=== PATIENT | female | born 1965 | race Caucasian/White ===

== ENCOUNTER 2016-10-31 09:03 | Observation (INO) | payer OTHER ==
[2016-10-10 08:07] VITALS: BMI 39.0
--- NOTE | 2016-10-10 08:36 | PAT Medication Instructions ---
Service Date Oct 10, 2016. Current Home Medication List Hydrochlorothiazide (Hctz), 25 MG PO 2 AM Multivitamin (Multivitamin), 1 TAB PO 2AM Potassium Gluconate (Potassium Gluconate Er), Unknown Dose PO 2AM Medication Instructions For Your Scheduled Surgery - Hold the following medications the morning of surgery: Hydrochlorothiazide (Hctz), 25 MG PO 2 AM Multivitamin (Multivitamin), 1 TAB PO 2AM Potassium Gluconate (Potassium Gluconate Er), Unknown Dose PO 2AM Nothing to eat or drink after midnight If you have any questions please call us at [phone] or [phone] or [phone]
[2016-10-10 09:33] LABS: BASO % 0.9 %; BASO ABS # 0.06 K/uL (0-0.2); COMPLETE YES; EOS % 3.7 %; HEMATOCRIT 42.8 % (37-47); IG% 0.1 %; LYMPH % 28.5 %; LYMPH ABS # 1.98 K/uL (1.2-3.4); MEAN CELL VOLUME 97.1 fL (80-100); MEAN CORPUSCULAR HEMOGLOBIN 33.3 pg (25-34); MEAN CORPUSCULAR HGB CONC 34.3 g/dl (32-36); MEAN PLATELET VOLUME 10.9 fL (7.4-10.4); MONO % 9.1 %; NEUT % 57.7 %; PLATELET COUNT 194 K/uL (130-400); RED BLOOD COUNT 4.41 M/uL (4.2-5.4); WHITE BLOOD COUNT 6.95 K/uL (4.8-10.8)
[2016-10-10 09:44] LABS: URINE APPEARANCE CLEAR (CLEAR); URINE BILIRUBIN NEG (NEG); URINE COLOR YELLOW; URINE EPITHELIAL CELL AUTO >30 /lpf (0-5); URINE NITRITE NEG (NEG); URINE PH 6.5 (4.5-7.5); URINE SPECIFIC GRAVITY 1.005 (1.000-1.030); UROBILINOGEN NEG (NEG)
[2016-10-10 09:52] LABS: MANUAL MICROSCOPIC REQUIRED? NO; REVIEW REQ? NO
[2016-10-10 09:54] LABS: CALCIUM 9.2 mg/dl (8.5-10.1); CREATININE 0.62 mg/dl (0.60-1.20); POTASSIUM 4.2 mmol/L (3.5-5.1)
--- NOTE | 2016-10-30 21:45 | HISTORY & PHYSICAL EXAMINATION ---
DATE OF ADMISSION: 10/31/2016 SUBJECTIVE AND CHIEF COMPLAINT: Left foot and ankle pain. HISTORY OF PRESENT ILLNESS: This is a patient who has had severe pes planus deformity and more recently has developed severe hindfoot pain in the left ankle. The pain at times have been so severe and she had to call off work because of the pain. More recently, she had an MRI of the left ankle which demonstrated severe hindfoot osteoarthritis as well as severe pes planus deformity. She is now being set up for surgical treatment. PAST MEDICAL HISTORY: Hypertension, history of neck pain, obesity. FAMILY HISTORY: Noncontributory. SOCIAL HISTORY: The patient denies tobacco use. She has approximately 4 alcoholic drinks per week. PAST SURGICAL HISTORY: Neck surgery x4, hysterectomy, and vein stripping in both legs. ALLERGIES: CODEINE CAUSES HIVES. CURRENT MEDICATIONS: HCTZ 25 mg 1 p.o. daily, potassium supplement daily, and multivitamin daily. OBJECTIVE PHYSICAL EXAMINATION: GENERAL: The patient is alert and oriented x3. She is in no acute distress. She is a well-dressed, well-nourished 51-year-old female. Her affect is appropriate. CARDIOVASCULAR: Heart has a regular rhythm and rate without murmurs. LUNGS: Clear to auscultation bilateral. Dorsalis pedis, posterior tib pulse +2/4. Cap refill less than 2 seconds. LYMPHATIC: No evidence of any swollen lymph nodes. MUSCULOSKELETAL: The patient has an antalgic gait favoring the left lower extremity. Upon inspection of the left lower extremity, patient has a severe pes planovalgus deformity. There is swelling noted of the ankle and hindfoot. She has decreased range of motion and strength due to the pain and obstruction. With palpation, she has tenderness at the sinus tarsi as well as at the medial and lateral aspects of the hindfoot. SKIN: There are no scars, rashes or ulcers noted. NEUROLOGIC: Sensation normal and intact distally. X-RAY EXAM: MRI of the left ankle demonstrates a pes planus deformity, also noted to have hindfoot osteoarthritis with subchondral cyst noted. There is also marrow edema noted. There appears to be an os trigonum with edema around the os trigonum. There is also an accessory navicular. ASSESSMENT AND DIAGNOSES: 1. Left hindfoot osteoarthritis. 2. Painful pes planovalgus deformity, left lower extremity. 3. Accessory navicular, left lower extremity. 4. Painful os trigonum, left lower extremity. 4. Achilles contracture, left lower extremity. PLAN: Above assessment was discussed with patient. At this time it is recommended patient undergo a left ankle triple arthrodesis, percutaneous tendo Achilles lengthening, resection of os trigonum and resection of accessory navicular. All potential risks, benefits, complications, alternatives and rehab have been discussed with patient. At this time, she wishes to proceed with the surgery as indicated and she will be scheduled for the surgery on 10/31/2016 with aspirin 81 mg p.o. b.i.d., DVT prophylaxis for at least 4 weeks postop. MARY CARMEND
[2016-10-31] VITALS (8 sets, daily range): BP systolic 122–176; BP diastolic 80–105; PULSE 62–92; TEMP 36.4–37.2; O2SAT 97–100; Ht 170.2 cm; Wt 115.5 kg
[~2016-10-31] VITALS: Ht 170.2 cm; Wt 115.5 kg
[~2016-10-31 09:03] MED LIST: CEFAZOLIN 2000 MG/60 ML D5W IV SCH; FENTANYL CITRATE INJ 50 MCG/1 ML 2 ML VIAL ONE; HYDR25TA4 PO; KETAMINE HCL INJ 50 MG/ML 10 ML VIAL ONE; LACTATED RINGER'S 1000ML IV SCH; MIDAZOLAM HCL 1 MG/ML 2ML VIAL ONE; MULT-506 PO; POTA1TAB PO; ROPIVACAINE 0.5% 5 MG/ML 30 ML VIAL ONE; SCOPOLAMINE 1.5 MG TDSY TD SCH
--- NOTE | 2016-10-31 09:42 | History & Physical Bridge Note ---
H&P Re-Evaluation Bridge Note: I have examined the patient, reviewed the History & Physical and in the interval since the performance of the History & Physical I have noted the following changes of clinical significance: No changes noted
[2016-10-31] MEDS ORDERED: BACITRACIN 50000 UNIT VIAL ONE (09:46)
[2016-10-31] MEDS ORDERED: BUPIVACAINE 0.5 % 5 MG/1 ML MPF 30ML VIAL ONE (09:47)
[2016-10-31] MEDS ORDERED: MIDAZOLAM HCL 1 MG/ML 2ML VIAL ONE (10:04)
[2016-10-31] MEDS ORDERED: FENTANYL CITRATE INJ 50 MCG/1 ML 2 ML VIAL ONE ×3 (10:25→13:43)
[2016-10-31] MEDS ORDERED: SUCCINYLCHOLINE 100MG/5ML SYR IV ONE (11:55)
[2016-10-31] MEDS ORDERED: DEXAMETHASONE SOD INJ 4 MG/ML VIAL ONE (11:55)
[2016-10-31] MEDS ORDERED: ROCURONIUM BROMIDE 10 MG/ML 5 ML VIAL ONE (11:55)
[2016-10-31] MEDS ORDERED: EpHEDrine SULFATE 50MG/5ML SYR ONE (11:55)
[2016-10-31] MEDS ORDERED: ONDANSETRON INJ 2 MG/ML 2 ML VIAL ONE ×2 (11:55→13:19)
[2016-10-31] MEDS ORDERED: SODIUM CHLORIDE 0.9% INJ 10 ML VIAL ONE (11:55)
[2016-10-31] MEDS ORDERED: ESMOLOL HCL 10 MG/ML 10 ML VIAL ONE (11:55)
[2016-10-31] MEDS ORDERED: LIDOCAINE HCL 2% 2 ML VIAL (20MG/ML) ONE (11:55)
[2016-10-31] MEDS ORDERED: PROPOFOL IV EMULSION 10 MG/ML 20 ML VIAL IV ONE (11:55)
[2016-10-31] MEDS ORDERED: NEOSTIGMINE METHYLSULFATE 5 MG/5 ML SYR ONE (12:53)
[2016-10-31] MEDS ORDERED: GLYCOPYRROLATE INJ 0.2 MG/ML VIAL ONE (12:53)
--- NOTE | 2016-10-31 12:54 | DIAGNOSTIC IMAGING REPORT ---
LEFT ANKLE 2 VIEWS CLINICAL HISTORY: LT TRIPLE ARTHRODESIS COMPARISON STUDY: None. FINDINGS: Total fluoroscopy time was 19 seconds. 2 fluoroscopic spot images were submitted. There is triple arthrodesis within the hindfoot with multiple screws. The hardware appears intact. The alignment is anatomic. IMPRESSION: Fluoroscopy for triple arthrodesis of the left hindfoot Electronically signed by: Domingo Valentine M.D. 10/31/2016 12:53 PM Dictated Date/Time: 10/31/2016 12:52 PM
--- NOTE | 2016-10-31 13:12 | Discharge Instructions ---
Discharge Instructions Date of Service Oct 31, 2016. Admission Reason for Admission: Left Ankle & Foot Osteoarthritis Discharge Discharge Diagnosis / Problem: left hindfoot osteoarthritis Discharge Goals Goal(s): Decrease discomfort, Improve function Activity Recommendations Activity Limitations: per Instructions/Follow-up section Weightbearing Status: Left non-weightbearing . Instructions / Follow-Up Instructions / Follow-Up ACTIVITY RECOMMENDATIONS: Limitations: No weight bearing to affected limb at all times. SPECIAL CARE INSTRUCTIONS: * Some drainage onto the dressing is normal and is no cause for alarm. * Some swelling is natural especially after walking. * When resting, keep your foot elevated above the level of your heart. * Call [facility] if you notice: -Increased drainage -Fever over 101 degrees F -Severe constant pain BANDAGE: * Leave bandage/cast in place unless otherwise directed. * Keep bandage/cast dry at all times. FOLLOW UP VISIT WITH DR. CANALES If appointment is not already scheduled: Please call [facility] after you get home today to schedule a follow-up appointment for [address] Canales at . Current Hospital Diet Patient's current hospital diet: Regular Diet Discharge Diet Recommended Diet: Regular Diet Procedures Procedures Performed: Left Ankle Triple Arthrodesis; Percutaneous Tendon Achilles Lengthening; Resection Ostrigonum; Resection Accessory Navicular Pending Studies Studies pending at discharge: no Medical Emergencies . Who to Call and When: Medical Emergencies: If at any time you feel your situation is an emergency, please call 911 immediately. . Non-Emergent Contact Non-Emergency issues call your: Surgeon Call Non-Emergent contact if: temperature is above 101, your pain is not controlled, your pain is worsening . "Provider Documentation" section prepared by Jordan Hutchinson. VTE Core Measure Inpt VTE Proph given/why not?: Other Anticoagulation (Aspirin 81 mg every 12 hours for 42 days.), T.E.D. Stockings
[2016-10-31] MEDS ORDERED: ONDANSETRON INJ 2 MG/ML 2 ML VIAL IV PRN ×2 (13:15→14:00)
[2016-10-31] MEDS ORDERED: NO NSAIDS SCH (13:15)
[2016-10-31] MEDS ORDERED: SOD PHOSPHATE/SOD BIPHOSPHATE ENEMA 132 ML BTL PR PRN (13:15)
[2016-10-31] MEDS ORDERED: BISACODYL 10 MG SUPP PR PRN (13:15)
[2016-10-31] MEDS ORDERED: ZOLPIDEM TARTRATE 5 MG TAB PO PRN (13:15)
[2016-10-31] MEDS ORDERED: ALUMINUM/MAGNESIUM/SIMETH (MAALOX MAX) 30 ML UDC PO PRN (13:15)
[2016-10-31] MEDS ORDERED: MAGNESIUM HYDROXIDE SUSP 30 ML UDC PO PRN (13:15)
--- NOTE | 2016-10-31 13:21 | [facility] Post Operative Brief Note ---
Immediate Operative Summary Operative Date Oct 31, 2016. Pre-Operative Diagnosis 1. Left hindfoot osteoarthritis. 2. Posterior Tibial Tendon Dysfunction Grade 3, left lower extremity. 3. Accessory navicular, left lower extremity. 4. Os trigonum Syndrome, left lower extremity. 5. Achilles contracture, left lower extremity. 6. Painful Pes Planus Post-Operative Diagnosis 1. Left hindfoot osteoarthritis. 2. Posterior Tibial Tendon Dysfunction Grade 3, left lower extremity. 3. Accessory navicular, left lower extremity. 4. Os trigonum Syndrome, left lower extremity. 5. Achilles contracture, left lower extremity. 6. Painful Pes Planus Procedure(s) Performed Left Triple Arthrodesis; Percutaneous Tendon Achilles Lengthening; Resection Os trigonum; Resection Accessory Navicular Surgeon Dr. Sarthak Grimes Temporary Staff Accountant Surgeon(s) Jordan Hutchinson PA-C Estimated Blood Loss 20cc Findings See Dict Specimens None per surgeon Drains HV x 1 Anesthesia GLMA w/ popliteal block Complication(s) None Disposition Recovery Room / PACU
[2016-10-31] MEDS ORDERED: HYDROmorphone INJ 1 MG/ML SYR ONE (13:43)
--- NOTE | 2016-10-31 13:49 | OPERATIVE REPORT ---
DATE OF OPERATION: 10/31/2016 PREOPERATIVE DIAGNOSES: 1. Left hindfoot degenerative joint disease. 2. Posterior tibial tendon dysfunction grade 3. 3. Achilles contracture. 4. Accessory navicular. 5. Os trigonum syndrome. 6. Painful pes planovalgus. POSTOPERATIVE DIAGNOSIS: Same. PROCEDURE: 1. Left triple arthrodesis. 2. Percutaneous tendo Achilles lengthening. 3. Resection os trigonum. 4. Resection of accessory navicular. SURGEON: Dr. Grimes. MANAGER LINE: Jordan Hutchinson PA-C who was present for patient positioning, sterile prep and drape, management of retractors and instruments. He was present through the critical portions of the case including wound closure, application of sterile dressing and transport of the patient to recovery. ANESTHESIA: General LMA with popliteal block. SPECIMENS: None. DRAINS: Hemovac x1. COMPLICATIONS: None. BLOOD LOSS: 20 mL. PERTINENT HISTORY: This is a 51-year-old woman who has had chronic progressive and ongoing left foot pain and worsening deformity over the last 2 years. She has had such severe discomfort which limits her ability to ambulate, work and walk. She attempted conservative management including shoe wear modification, activity modification, anti-inflammatories, rest, use of a laced brace and assistive device. She had profound damage to her posterior tibial tendon, hindfoot arthritis and severe limitations of daily living. The patient was scheduled for surgery as indicated. All potential risks, benefits, complications, alternatives, rehab, potential for incomplete relief of symptoms, need for further surgery, DVT, PE, , persistent pain, swelling, scarring, weakness, neurovascular injury, wound complications, hardware failure, nonunion, malunion or persistent limp was discussed with the patient. The patient decided to proceed with procedure as indicated. DESCRIPTION OF PROCEDURE: The patient was taken to the Operating Suite, placed supine on the Operating Room table, after consent and identification of the proper operative site, the patient was anesthetized. LMA was placed. Tourniquet was placed high on the left lower extremity. Left lower extremity was then sterilely prepped and draped in the usual fashion and talonavicular joint was then prepared. Exsanguinated with an Esmarch bandage and tourniquet inflated to 350 mmHg. Next, the foot was held in dorsiflexion and a three-part percutaneous incision was made with an 11-blade scalpel to lengthen the Achilles tendon using standard technique. Next, the stab incisions were then closed using interrupted skin luís. Next, the 15-blade scalpel was used to make an incision from the distal aspect of the fibula to the base of the fourth metatarsal. The incision was deepened through subcutaneous tissue and meticulous hemostasis was obtained with electrocautery. Subcutaneous nerves were identified, retracted and protected. The extensor digitorum brevis was identified and was sharply elevated from the anterior process of the calcaneus revealing the sinus tarsi. Next, the sinus tarsi was debrided carefully with a rongeur and 15-blade scalpel. A cervical lamina spreader box operator was placed in the sinus tarsi opening the subtalar joint. Subtalar joint was then prepared with the use of a curette and rongeur to resect the articular surfaces down to subchondral bleeding bone. Irrigation was performed with sterile normal saline and then 2-mm drill bit was used to further prepare the joint surface with multiple drill holes in both surfaces of the subtalar joint and a small osteotome and mallet were used to fish scale the joint surfaces to increase surface area and bleeding. Next, the calcaneocuboid joint was then entered with the 15-blade scalpel, debrided of soft tissue and then a lamina spreader box operator was placed in the joint opening it for preparation with a curette and rongeur to remove any articular surface down to subchondral bleeding bone. Next, the 2-mm drill bit was used to further prepare the joint with multiple drill holes into the joint and then a small osteotome and mallet were used to fish scale the joint. Next, the 15-blade was used to make an incision from the distal aspect of the tibia to the base of the naviculocuneiform joint. The incision was deepened through subcutaneous tissue. Meticulous hemostasis obtained with electrocautery. A Weitlaner retractor was placed in the wound. The greater saphenous vein was identified, retracted and protected. The capsule of the talonavicular joint was then entered sharply with a 15-blade scalpel and elevated both superior and inferiorly. A small Devorah was placed on the neck of the talus and further soft tissue elevation was performed with the 15-blade scalpel until the talonavicular joint was clearly visualized. The articular surface was then debrided with curette and rongeur and a cervical lamina spreader box operator was placed in the joint. Next, it was irrigated with sterile normal saline and a 2-mm drill bit was used to make multiple holes in the joint surfaces and fish scaling was performed with a small osteotome and mallet. A large, impinging accessory navicular was identified and then sharply resected with a 15 blade scalpel. The subtalar joint was then entered and the large os trigonum was identified using a freer elevator. This was then resected using a pituitary rongeur. After final irrigation was performed with sterile normal saline, the autograft obtained from the accessory navicular and the os trigonum was then morcellized using a rongeur and approximately 15 mL of cancellous graft was impacted into the sinus tarsi. Next, the medial and lateral incisions were irrigated with sterile normal saline and the joint surfaces were then aligned appropriately based on alignment of the lower extremity and the patella. Subtalar joint was aligned and then a 7.3-mm cannulated guidepin was driven from the superior aspect of the talus across the subtalar joint into the calcaneus under fluoroscopic control. Next, an appropriate length 7.3-mm long-thread screw was placed under fluoroscopic control and countersunk slightly. Next, the guidepin was removed. Next, 2.25-mm guidepins x 2 were used to stabilize the talonavicular joint in appropriate alignment and then the calcaneocuboid joint was then stabilized with appropriate alignment under fluoroscopic control. Next, appropriate length of 7.3-mm short-thread cannulated screws were placed across the talonavicular and calcaneocuboid joints respectively under fluoroscopic control. All guidepins were removed. Wounds were irrigated with sterile normal saline and bone graft was then packed in and around the subtalar, talonavicular and calcaneocuboid joints which was comprised of 15 cc of cancellous bone chips. A 10-Swazi single lumen Hemovac drain was then placed in the lateral aspect of the wound exiting dorsolaterally and the extensor digitorum brevis then closed back to its origin with interrupted 2-0 Vicryl sutures. The talonavicular joint capsule was closed using 2-0 Vicryl sutures. The dermis was closed using buried interrupted 3-0 Vicryl sutures medially and laterally and then skin incisions were closed using 4-0 Nylon sutures. A sterile compressive dressing and bulky Albino-Childress plaster splint was applied, overwrapped with an Librado wrap. The tourniquet was released. DISPOSITION: Patient awakened and taken to Recovery in stable condition. I attest to the content of the Intraoperative Record and any orders documented therein. Any exceptions are noted below. MRAY CARMEND
[2016-10-31] MEDS ORDERED: HYDROmorphone INJ 1 MG/ML SYR IV PRN (14:00)
[2016-10-31] MEDS ORDERED: EpHEDrine SULFATE INJ 50 MG/ML AMP IV PRN (14:00)
[2016-10-31] MEDS ORDERED: FENTANYL CITRATE INJ 50 MCG/1 ML 2 ML VIAL IV PRN (14:00)
[2016-10-31] MEDS ORDERED: ATROPINE SULFATE 0.1 MG/ML 5ML SYR IV PRN (14:00)
[2016-10-31] MEDS ORDERED: IV FLUIDS COMPLETED PRN (14:30)
--- NOTE | 2016-10-31 14:43 | Anesthesiology Progress Note ---
Anesthesia Post Op Note Date & Time Oct 31, 2016 at 14:42 Vital Signs Pain Intensity: 4 Vital Signs Past 12 Hours Date Time Temp Pulse Resp B/P Pulse Ox O2 Delivery O2 Flow Rate FiO2 10/31/16 14:25 36.2 77 19 121/78 97 Nasal Cannula 2 10/31/16 14:15 76 19 134/77 99 Nasal Cannula 2 10/31/16 14:05 66 14 136/75 100 Nasal Cannula 2 10/31/16 13:55 65 18 134/81 100 Nasal Cannula 2 10/31/16 13:45 61 26 153/84 100 Mask 10 10/31/16 13:35 66 15 138/81 100 Mask 10 10/31/16 13:28 36.9 69 16 128/80 100 Mask 10 10/31/16 09:30 36.5 66 20 176/99 99 Room Air Notes Mental Status: alert / awake / arousable, participated in evaluation Pt Amnestic to Procedure: Yes Nausea / Vomiting: adequately controlled Pain: adequately controlled Airway Patency, RR, SpO2: stable & adequate BP & HR: stable & adequate Hydration State: stable & adequate Anesthetic Complications: no major complications apparent
[2016-10-31] MEDS: MoRPHine SULFATE 2 MG/ML CARP IV PRN ×3 (15:46→20:06)
[2016-10-31] MEDS: D5W AND 1/2NSS + 20MEQ KCL 1,000 ML IV SCH (15:47)
[2016-10-31] MEDS: CHECK SCOPOLAMINE PATCH PLACEMENT SCH ×2 (15:58→23:39)
[2016-10-31] MEDS: CEFAZOLIN IV 2,000 MG in DEXTROSE 5% 50ML 50 ML IV SCH (17:42)
--- NOTE | 2016-10-31 17:52 | DIAGNOSTIC IMAGING REPORT ---
LEFT FOOT 2 VIEWS CLINICAL HISTORY: POST OP COMPARISON: None. DISCUSSION: Findings consistent with postoperative ankle fusion patient is in casting material. Surgical drains in position. IMPRESSION: Ankle fusion Electronically signed by: Paco Reza M.D. 10/31/2016 5:50 PM Dictated Date/Time: 10/31/2016 5:50 PM
[2016-10-31] MEDS: OXYCODONE HCL IR 5 MG TAB (IMMEDIATE RELEASE) PO PRN ×2 (19:11→23:41)
[2016-10-31] MEDS ORDERED: SENNA 8.6 MG TAB PO SCH (21:00)
[2016-10-31] MEDS ORDERED: NURSING VERBAL MED ORDER ONE (21:15)
[2016-10-31] MEDS: DOCUSATE SODIUM 100 MG CAP PO SCH (21:46)
[2016-10-31] MEDS: ACETAMINOPHEN 500 MG TAB PO SCH (21:47)
[2016-10-31] MEDS: HYDROmorphone INJ 0.5 MG/0.5 ML SYR IV PRN (21:47)
[2016-11-01] MEDS: CEFAZOLIN IV 2,000 MG in DEXTROSE 5% 50ML 50 ML IV SCH (01:41)
[2016-11-01] MEDS: D5W AND 1/2NSS + 20MEQ KCL 1,000 ML IV SCH ×2 (01:41→11:30)
[2016-11-01] MEDS: HYDROmorphone INJ 0.5 MG/0.5 ML SYR IV PRN ×2 (01:42→06:08)
[2016-11-01 03:00] VITALS: BP 118/76; PULSE 76; TEMP 36.9; O2SAT 95
[2016-11-01] MEDS: OXYCODONE HCL IR 5 MG TAB (IMMEDIATE RELEASE) PO PRN ×3 (03:42→12:48)
[2016-11-01 06:03] LABS: HEMATOCRIT 38.4 % (37-47); MEAN CORPUSCULAR HEMOGLOBIN 32.6 pg (25-34); MEAN CORPUSCULAR HGB CONC 33.6 g/dl (32-36); PLATELET COUNT 178 K/uL (130-400); RED BLOOD COUNT 3.96 M/uL (4.2-5.4); WHITE BLOOD COUNT 10.63 K/uL (4.8-10.8)
[2016-11-01] MEDS: ACETAMINOPHEN 500 MG TAB PO SCH (06:08)
[2016-11-01] MEDS ORDERED: NURSING VERBAL MED ORDER ONE ×2 (06:30→06:45)
[2016-11-01] MEDS ORDERED: KETOROLAC TROMETHAMINE 30 MG/ML VIAL ONE (06:36)
[2016-11-01] MEDS ORDERED: OXYCODONE HCL 10 MG TABCR (OXYCONTIN) PO ONE (06:36)
[2016-11-01 06:37] LABS: BUN/CREATININE RATIO 16.3 (10-20); CALCIUM 8.6 mg/dl (8.5-10.1); CREATININE 0.71 mg/dl (0.60-1.20); POTASSIUM 4.2 mmol/L (3.5-5.1)
[2016-11-01] MEDS ORDERED: KETOROLAC TROMETHAMINE 30 MG/ML VIAL IV. SCH (06:45)
[2016-11-01] MEDS ORDERED: OXYCODONE HCL IR 5 MG TAB (IMMEDIATE RELEASE) PO SCH (06:45)
[2016-11-01] MEDS: CHECK SCOPOLAMINE PATCH PLACEMENT SCH (08:00)
[2016-11-01 08:06] VITALS: BP 125/81; PULSE 66; TEMP 36.8; O2SAT 95
[2016-11-01] MEDS ORDERED: HYDROCHLOROTHIAZIDE 25 MG TAB PO SCH (09:00)
[2016-11-01] MEDS ORDERED: ASPIRIN 81 MG ECTAB PO SCH (09:00)
[2016-11-01] MEDS ORDERED: PANTOprazole SOD 40 MG TAB PO SCH (09:00)
[2016-11-01] MEDS ORDERED: MULTIVITAMIN TAB PO SCH (09:00)
[2016-11-01] MEDS: DOCUSATE SODIUM 100 MG CAP PO SCH (09:39)
[2016-11-01] MEDS ORDERED: OXYC-57 PO (11:29)
[2016-11-01] MEDS ORDERED: OXYC15TA89 PO (11:29)
[2016-11-01 11:32] VITALS: BP 120/77; PULSE 58; TEMP 36.8; O2SAT 99
--- NOTE | 2016-11-01 11:37 | Orthopedic Progress Note ---
Orthopedic Progress Note Date of Service Nov 01, 2016. Subjective Reports: feeling well, Denies: SOB, calf pain, chest pain, light headedness, nausea / vomiting Additional Notes: Pain control improved since last night. Objective calves soft nontender, N/V intact, capillary refill less than 2 sec., dressing C /D/I, A&O x3, toes mobile, hemovac drainage (20cc) Drain pulled w/o difficulty.Toes pink and warm. Date Time Temp Pulse Resp B/P Pulse Ox O2 Delivery O2 Flow Rate FiO2 11/01/16 10:37 Room Air 11/01/16 08:06 36.8 66 16 125/81 95 Room Air 11/01/16 03:00 36.9 76 16 118/76 95 Room Air 11/01/16 00:30 Room Air 10/31/16 23:35 36.9 66 18 122/80 97 Room Air 10/31/16 20:40 37.2 92 18 141/88 98 Room Air 10/31/16 17:40 36.9 83 17 160/94 99 Nasal Cannula 2.0 10/31/16 16:38 36.7 66 17 170/105 98 Nasal Cannula 2.0 10/31/16 15:56 36.5 79 17 160/103 100 Nasal Cannula 2.0 10/31/16 15:50 Nasal Cannula 2.0 10/31/16 15:14 36.4 71 17 151/94 100 Nasal Cannula 2.0 10/31/16 14:45 36.5 62 16 139/81 100 Nasal Cannula 2.0 10/31/16 14:45 Nasal Cannula 2.0 10/31/16 14:25 36.2 77 19 121/78 97 Nasal Cannula 2 10/31/16 14:15 76 19 134/77 99 Nasal Cannula 2 10/31/16 14:05 66 14 136/75 100 Nasal Cannula 2 10/31/16 13:55 65 18 134/81 100 Nasal Cannula 2 10/31/16 13:45 61 26 153/84 100 Mask 10 10/31/16 13:35 66 15 138/81 100 Mask 10 10/31/16 13:28 36.9 69 16 128/80 100 Mask 10 Laboratory Results 24 Hours: Test 11/01/16 05:18 Hematocrit 38.4 % Hemoglobin 12.9 g/dL Assessment & Plan Assessment: POD #1 S/P left triple arthrodesis Pain control improved. Plan: Plan for D/C home today NWB L LE PO ASA 81mg PO daily for 4 weeks Ice and elevate L LE F/U 2 weeks for removal sutures. Inhouse Planning DVT Prophylaxis: ASA Discharge Planning Discharge Planning: home Pain Management: Percocet, Oxycontin DVT Prophylaxis: ASA
[2016-11-01] MEDS ORDERED: OXYC-292 PO (11:43)
[2016-11-01 12:23] VITALS: BP 120/77; PULSE 58; TEMP 36.8; O2SAT 99
--- NOTE | 2016-11-09 21:28 | Discharge Summary ---
Orthopedic Discharge Summary Admission Date/Reason Oct 31, 2016 at 09:37 Left Ankle & Foot Osteoarthritis. Discharge Date/Disposition Nov 01, 2016 Home Diagnosis Principal Diagnosis: left hindfoot osteoarthritis Secondary Diagnoses/Problems: left painful pes planovalgus left achilles contracture left painful os trigonum and accessory navicular Procedure(s) Performed 1. Left triple arthrodesis. 2. Percutaneous tendo Achilles lengthening. 3. Resection os trigonum. 4. Resection of accessory navicular Consultations None Medication Reconciliation New Medications: Oxycodone Hcl (Oxycodone Hcl Er) 10 Mg Tab 10 MG PO Q12, #10 TAB Oxycodone/Acetaminophen 5MG/325MG (Percocet 5MG/325MG) Tab 1-2 TABLETS PO Q4H PRN for Pain, #60 TAB PAIN Continued Medications: Hydrochlorothiazide (Hctz) 25 Mg Tab 25 MG PO 2 AM , TAB Multivitamin (Multivitamin) Tab 1 TAB PO 2AM, TAB Potassium Gluconate (Potassium Gluconate Er) Unknown Strength Tab Unknown Dose PO 2AM "SOMETIMES DOSE IS 595, SOMETIMES IS 250" PER PATIENT Admission Physical Exam As per Admitting History & Physical. Hospital Course The patient underwent a left triple arthrodesis on 3. She was kept overnight for pain control. On POD #1, she was doing well with NWB on the LLE and her pain was controlled. She was then d/c'd home. Discharge Instructions Please refer to the electronic Patient Visit Report (Discharge Instructions) for additional information. ACTIVITY RECOMMENDATIONS: Limitations: No weight bearing to affected limb at all times. SPECIAL CARE INSTRUCTIONS: * Some drainage onto the dressing is normal and is no cause for alarm. * Some swelling is natural especially after walking. * When resting, keep your foot elevated above the level of your heart. * Call [facility] if you notice: -Increased drainage -Fever over 101 degrees F -Severe constant pain * Take Aspirin 81 mg every 12 hours for 30 days for DVT prophylaxis. BANDAGE: * Leave bandage/cast in place unless otherwise directed. * Keep bandage/cast dry at all times. FOLLOW UP VISIT WITH DR. CANALES If appointment is not already scheduled: Please call [facility] after you get home today to schedule a follow-up appointment for [address] Canales at .
== END 2016-11-01 13:05 | disposition home or self-care (01) ==
LOC: ENRESERVDT → ENRESERVTM → C.ACU 09:03 → C.3E 09:37
PROVIDERS: ADMIT Orthopaedic Surgery Sports Medicine; ATTEND Orthopaedic Surgery Sports Medicine
DX: M19.072 Primary osteoarthritis, left ankle and foot (principal); M21.42 Flat foot [pes planus] (acquired), left foot; M67.01 Short Achilles tendon (acquired), right ankle; I10 Essential (primary) hypertension; E66.9 Obesity, unspecified; Q74.2 Other congenital malformations of lower limb(s), including pelvic girdle

== ENCOUNTER → 2017-10-30 | Outpatient (CLI) | payer OTHER ==
[~2017-10-30] MED LIST changes: -CEFAZOLIN 2000 MG/60 ML D5W IV SCH; -FENTANYL CITRATE INJ 50 MCG/1 ML 2 ML VIAL ONE; -KETAMINE HCL INJ 50 MG/ML 10 ML VIAL ONE; -LACTATED RINGER'S 1000ML IV SCH; -MIDAZOLAM HCL 1 MG/ML 2ML VIAL ONE; +OXYC-292 PO; -ROPIVACAINE 0.5% 5 MG/ML 30 ML VIAL ONE; -SCOPOLAMINE 1.5 MG TDSY TD SCH
--- NOTE | 2017-10-30 14:20 | DIAGNOSTIC IMAGING REPORT ---
L LOWER EXTREMITY WITHOUT HISTORY: 52 years-old Female EVALUATE HEALING ARTHRODESIS chronic lateral ankle pain with history of prior surgery. Status post triple arthrodesis with fusion of the subtalar joint. COMPARISON: Left foot and ankle radiographs 10/31/2016 TECHNIQUE: Multiple axial CT images of the left lower extremity were obtained without the use of IV contrast. Coronal and sagittal reformatted images were obtained from the axial data set and were submitted for review. Additional 3-D pattern images were generated from a separate workstation. A dose lowering technique was used consistent with the principals of ALARA. FINDINGS: The bones appear mildly demineralized. There are moderate degenerative changes of the tibiotalar joint without definite osteochondral defect of the talar dome identified. Moderate degenerative changes also noted throughout the midfoot articulations, notably within the navicular cuneiform joints. Postoperative changes from prior subtalar arthrodesis redemonstrated. Single cannulated screw is noted traversing the cuboid calcaneal articulation which appears intact without evidence of hardware fracture or loosening. There appears to be at least 80% bony fusion at this articulation. Additional large cannulated screw traverses anterior to posterior fusing the posterior subtalar joint. Note is of hardware fracture or loosening. There appears to be complete bony fusion of the middle and posterior subtalar joints. Lastly, there are 2 cannulated screws fusing the talonavicular joint which appear intact without evidence of hardware fracture or loosening. There also appears to be complete bony fusion of this articulation. The cannulated screw fusing the calcaneal cuboid articulation demonstrates subcortical cysts adjacent to the subarticular cuboid, image 49 of series 301 adjacent to the base of the fifth and fourth metatarsals with subcortical cystic changes, joint space narrowing and subchondral sclerosis also seen involving the base of the fifth metatarsal, image 50 series 301. There is no acute fracture or subluxation identified. Midfoot alignment is anatomic on these nonweightbearing images. There is mild subcutaneous edema about the lower leg and imaged foot which is nonspecific without drainable fluid collection identified. The imaged flexor and extensor tendons appear intact. The Achilles tendon appears unremarkable and intact. No foreign body identified. Moderate sized enthesophytes about the Achilles and plantar calcaneus. IMPRESSION: 1. Postoperative changes from triple arthrodesis of the hindfoot with evidence of complete to near-complete bony fusion involving the subtalar joint, talonavicular and cuboid calcaneal articulations. No evidence of hardware fracture or loosening. 2. Subcortical cystic changes of the cuboid adjacent to the head of the cannulated screw with adjacent subcortical cystic changes and subchondral sclerosis involving the base of the fifth metatarsal. 3. No acute fracture or subluxation. 4. Moderate degenerative changes of the tibiotalar joint. 5. Nonspecific mild subcutaneous edema about the lower leg and imaged foot. The above report was generated using voice recognition software. It may contain grammatical, syntax or spelling errors. Electronically signed by: Iain Mcdowell M.D. 10/30/2017 2:19 PM Dictated Date/Time: 10/30/2017 2:08 PM
== END | disposition home or self-care (01) ==
LOC: C.CTS 13:51
PROVIDERS: ATTEND Physician Assistant
DX: M25.572 Pain in left ankle and joints of left foot (principal); Z98.1 Arthrodesis status

== ENCOUNTER 2021-04-29 06:36 | Observation (INO) ==
[2021-04-29] MEDS ORDERED: ASPIRIN CHEW 324 MG PO STA (07:08)
--- NOTE | 2021-04-29 07:16 | Emergency Department Note ---
History of Present Illness General Chief complaint: Chest Pain Stated complaint: CHEST PAIN,SHORTNESS OF BREATH Time Seen by Provider: 04/29/21 06:56 Source: patient, family ( who is at the bedside), RN notes reviewed and old records reviewed Mode of arrival: ambulatory Limitations: no limitations History of Present Illness Maximum Pain Intensity: 8 This patient is a 55-year-old female who comes in with chest pain. It started suddenly while she was at work folding some laundry about an hour ago. It is in the center of her chest radiates to the right. She describes it more as a burning she said it was a pressure initially. She said that she was short of breath but that is getting better she feels lightheaded and nauseated she said she had some sweating to. No history of any similar complaints. She feels better when she is just sitting here but still says the pain is 8 out of 10. She did take her normal baby aspirin at 1:00 she does work automotive glass mechanic. She has had left lower extremity swelling for years that is unchanged. She did have the Covid vaccine. She has a family history of cardiac disease as well as her father had aortic aneurysm. She said she had imaging of her aorta did not have an aneurysm. She had no recent illness or fever or chills. She does have a history of hypertension for which she takes HCTZ and she did take her medications. She has no numbness or weakness. Home Medications Medication Instructions Recorded Confirmed Type multivitamin 1 tab PO DAILY@0200 #0 tab 07/23/16 04/29/21 History aspirin 81 mg tablet,delayed 81 mg PO DAILY@0200 04/28/19 04/29/21 History release hydrochlorothiazide 25 mg tablet 25 mg PO DAILY@0200 04/28/19 04/29/21 History omega-3 fatty acids 1,000 mg 1,000 mg PO DAILY@0200 04/28/19 04/29/21 History capsule (Fish Oil Concentrate) potassium gluconate 595 mg (99 mg) 99 mg PO DAILY@0200 09/07/19 04/29/21 History tablet omeprazole 20 mg capsule,delayed 20 mg PO DAILY@0200 09/15/19 04/29/21 History release linaclotide 145 mcg capsule 145 mcg PO DAILY@0200 01/29/21 04/29/21 History (Linzess) Allergies Allergy/AdvReac Type Severity Reaction Status Date / Time chlorhexidine Allergy Intermediate SEVERE Verified 04/29/21 08:14 ITCHING codeine Allergy Intermediate Hives Verified 04/29/21 08:14 Past Med/Surg History Medical History Degenerative disc disease CERVICAL History of colitis History of colon polyps Hypertension Morbid obesity with BMI of 40.0-44.9, adult Osteoarthritis Shingles Surgical History H/O cervical spine surgery X 4 SURGERIES (HARDWARE INTACT) GOOD ROM IF SLOWLY TURNED H/O vein stripping RT/LEFT LEGS History of ankle surgery LEFT TOTAL ANKLE ARTHROPLASTY History of colonoscopy with polypectomy History of esophagogastroduodenoscopy (EGD) History of hysterectomy with unilateral oophorectomy History of laparoscopy History of tonsillectomy Hx of tubal ligation Family History Mother Family history of diabetes mellitus Father Family hx colonic polyps AAA (abdominal aortic aneurysm) Heart disease Brother Heart disease Other No family history of adverse response to anesthesia Social History Smoking Status: Current some day smoker Second Hand Exposure: No; Hx Alcohol Use: Yes Alcohol type: beer and wine Hx Substance Use: No Preferred Language: Maltese Communication Ability: Effective Cnc Programmer Required: No Beliefs That Will Affect Care: None Current Living Situation: Spouse and Family Current Living Situation Comment: Lives with and adult son with MS Feels Safe at Home: Yes Assistive Devices: Contacts Review of Systems A total of 10 systems reviewed and were otherwise negative She tells me she did get treated for Lyme disease over the summer. She did complete her course of antibiotics Physical Exam Vital Signs Vital Signs - 24 hr 04/29/21 06:40 04/29/21 06:57 04/29/21 06:59 Temperature 36.7 C Temperature Source Temporal Artery Scan Pulse Rate 90 83 Pulse Rate [Finger] 81 Pulse Rate from SpO2 Sensor 84 Respiratory Rate 20 18 Respiratory Effort / Characteristics Non-Labored Spontaneous Respiratory Depth Normal Respiratory Pattern Regular Blood Pressure 206/142 H 200/131 H Blood Pressure Mean 163 154 Blood Pressure Position Sitting Pulse Oximetry 98 97 98 Oxygen Delivery Method Room Air Room Air Room Air Sepsis Recent Fever Within 48 Hours No Sepsis New/Unexplained Change in Mental Status No Sepsis Action Taken by Nursing No Action Required 04/29/21 07:00 04/29/21 07:15 04/29/21 08:00 Temperature Temperature Source Pulse Rate 85 80 Pulse Rate [Finger] Pulse Rate from SpO2 Sensor 83 80 Respiratory Rate 16 16 Respiratory Effort / Characteristics Respiratory Depth Respiratory Pattern Blood Pressure 190/130 H 154/115 H Blood Pressure Mean 150 128 Blood Pressure Position Pulse Oximetry 97 95 97 Oxygen Delivery Method Room Air Room Air Room Air Sepsis Recent Fever Within 48 Hours Sepsis New/Unexplained Change in Mental Status Sepsis Action Taken by Nursing General: Well developed well nourished mildly anxious middle-aged female who otherwise in no acute respiratory distress, breathing comfortably on room air. Normal speech HEENT: Normal cephalic atraumatic. Pupils are equal round and reactive to light. Extraocular movements are intact. Oropharynx is pink with moist mucous membranes. No swelling of the mouth lips or tongue. Neck: Supple with a midline trachea. No meningeal signs or stiffness, no JVD or bruits. No Stridor. Chest: Clear to auscultation bilaterally. No wheezes or rhonchi. No increased work of breathing. Is mildly tender palpation in the central chest Heart: Regular rate and rhythm without murmurs or gallops. Abdomen: Soft nontender, nondistended without rebound guarding or rigidity. Extremities: No cyanosis clubbing. She has edema of her left leg which is chronic and unchanged she tells me. Spine/Back. Non tender to palpation. No CVA tenderness Skin: Good turgor without rashes. Neurologic exam: Cranial nerves two through 12 are intact. Motor and sensation are intact and symmetrical throughout. Course Administered Medications Acetaminophen (Acetaminophen 325 Mg Tab) 650 mg PO Q4H PRN PRN Reason: Pain or Fever Stop: 05/29/21 11:26 Last Admin: 04/29/21 13:08 Dose: 650 mg Documented by: [id number] Discontinued Medications Amlodipine Besylate (Amlodipine Besylate 5 Mg Tab) Confirm Administered Dose 5 mg .ROUTE .STK-MED ONE Stop: 04/29/21 09:41 Last Admin: 04/29/21 09:42 Dose: 5 mg Documented by: [id number] Aspirin (Aspirin Chew 324 Mg) 324 mg PO NOW STA Stop: 04/29/21 07:09 Last Admin: 09/13/21 07:23 Dose: 324 mg Documented by: [id number] Ioversol (Optiray 320 125ml) 120 ml IV ONCE ONE Stop: 04/29/21 08:30 Last Admin: 04/29/21 08:29 Dose: 120 ml Documented by: [id number] Morphine Sulfate (Morphine Sulfate 2 Mg/Ml Carp) 2 mg IV NOW STA Stop: 04/29/21 08:56 Last Admin: 04/29/21 09:42 Dose: 2 mg Documented by: [id number] Nitroglycerin (Nitroglycerin Sl 0.4 Mg/Tab Tab) 0.4 mg SL UD PRN PRN Reason: Chest Pain Stop: 05/29/21 07:07 Last Admin: 04/29/21 08:05 Dose: 0.4 mg Documented by: [id number] Admin: 04/29/21 07:36 Dose: 0.4 mg Documented by: [id number] Admin: 04/29/21 07:23 Dose: 0.4 mg Documented by: [id number] Nitroglycerin (Nitroglycerin 2% Ointment 30gm Tube) 1 inch EXT NOW ONE Stop: 04/29/21 08:18 Last Admin: 04/29/21 08:57 Dose: 1 inch Documented by: [id number] Ondansetron HCl (Ondansetron Inj 2 Mg/Ml 2 Ml Vial) Confirm Administered Dose 4 mg .ROUTE .STK-MED ONE Stop: 04/29/21 08:00 Last Admin: 04/29/21 08:06 Dose: 4 mg Documented by: [id number] Ondansetron HCl (Ondansetron Inj 2 Mg/Ml 2 Ml Vial) 4 mg IV NOW STA Stop: 04/29/21 08:00 Last Admin: 04/29/21 08:06 Dose: Not Given Documented by: [id number] Ondansetron HCl (Ondansetron Inj 2 Mg/Ml 2 Ml Vial) 4 mg IV NOW STA Stop: 04/29/21 08:56 Last Admin: 04/29/21 09:55 Dose: 4 mg Documented by: [id number] Potassium Chloride (Potassium Chloride 10 Meq Tabcr) Confirm Administered Dose 40 meq PO .STK-MED ONE Stop: 04/29/21 09:41 Last Admin: 04/29/21 09:42 Dose: 40 meq Documented by: [id number] Medical Decision Making Differential Diagnosis Acute coronary syndrome, arrhythmia, or aortic aneurysm/dissection, pneumonia, pneumothorax, CHF, GERD, musculoskeletal, anxiety, Covid Medical Records Attestation: I reviewed the patient's medical records. Home Medications Current Medication List: was personally reviewed by me Laboratory Data Attestation: I reviewed the patient's lab results. Result diagrams: 04/29/21 06:55 04/29/21 06:55 Lab Results 04/29/21 04/29/21 04/29/21 Range/Units 06:55 06:55 06:55 WBC 7.18 (4.8-10.8) K/uL RBC 4.28 (4.2-5.4) M/uL Hgb 14.3 (12.0-16.0) g/dL Hct 41.6 (37-47) % MCV 97.2 (80-100) fL MCH 33.4 (25-34) pg MCHC 34.4 (32-36) g/dL RDW Std Deviation 47.0 H (36.4-46.3) fL RDW Coeff of Wilder 13.2 (11.5-14.5) % Plt Count 212 (130-400) K/uL MPV 10.9 H (7.4-10.4) fL Immature Gran % (Auto) 0.3 % Neut % (Auto) 53.7 % Lymph % (Auto) 34.5 % Arthur % (Auto) 7.8 % Eos % (Auto) 2.9 % Baso % (Auto) 0.8 % Neut # (Auto) 3.85 (1.4-6.5) K/uL Lymph # (Auto) 2.48 (1.2-3.4) K/uL Arthur # (Auto) 0.56 (0.11-0.59) K/uL Eos # (Auto) 0.21 (0-0.5) K/uL Baso # (Auto) 0.06 (0-0.2) K/uL Immature Gran # (Auto) 0.02 (0.00-0.02) K/uL Sodium 136 (136-145) mmol/L Potassium 3.4 L (3.5-5.1) mmol/L Chloride 103 (98-107) mmol/L Carbon Dioxide 27 (21-32) mmol/L Anion Gap 6.0 (3-11) BUN 16 (7-18) mg/dl Creatinine 0.73 (0.6-1.2) mg/dl Est Cr Clr Drug Dosing 119.3 ml/min Est GFR ( Amer) 107.5 ml/min Est GFR (Non-Af Amer) 92.7 ml/min BUN/Creatinine Ratio 22.4 H (10-20) Glucose 100 H (70-99) mg/dl Calcium 9.2 (8.5-10.1) mg/dl Total Bilirubin 0.6 (0.2-1) mg/dl AST 18 (15-37) U/L ALT 31 (12-78) U/L Alkaline Phosphatase 102 (45-117) U/L Troponin I < 0.015 (0-0.045) ng/ml Total Protein 7.5 (6.4-8.2) gm/dl Albumin 3.7 (3.4-5.0) gm/dl Globulin 3.8 (2.5-4.0) gm/dl Albumin/Globulin Ratio 1.0 (0.9-2) Lipase 104 (73-393) U/L TSH 2.070 (0.300-4.500) uIu/ml COVID-19 Eval Order SARS-CoV-2 (PCR) (Negative) 04/29/21 04/29/21 Range/Units 07:27 07:27 WBC (4.8-10.8) K/uL RBC (4.2-5.4) M/uL Hgb (12.0-16.0) g/dL Hct (37-47) % MCV (80-100) fL MCH (25-34) pg MCHC (32-36) g/dL RDW Std Deviation (36.4-46.3) fL RDW Coeff of Wilder (11.5-14.5) % Plt Count (130-400) K/uL MPV (7.4-10.4) fL Immature Gran % (Auto) % Neut % (Auto) % Lymph % (Auto) % Arthur % (Auto) % Eos % (Auto) % Baso % (Auto) % Neut # (Auto) (1.4-6.5) K/uL Lymph # (Auto) (1.2-3.4) K/uL Arthur # (Auto) (0.11-0.59) K/uL Eos # (Auto) (0-0.5) K/uL Baso # (Auto) (0-0.2) K/uL Immature Gran # (Auto) (0.00-0.02) K/uL Sodium (136-145) mmol/L Potassium (3.5-5.1) mmol/L Chloride (98-107) mmol/L Carbon Dioxide (21-32) mmol/L Anion Gap (3-11) BUN (7-18) mg/dl Creatinine (0.6-1.2) mg/dl Est Cr Clr Drug Dosing ml/min Est GFR ( Amer) ml/min Est GFR (Non-Af Amer) ml/min BUN/Creatinine Ratio (10-20) Glucose (70-99) mg/dl Calcium (8.5-10.1) mg/dl Total Bilirubin (0.2-1) mg/dl AST (15-37) U/L ALT (12-78) U/L Alkaline Phosphatase (45-117) U/L Troponin I (0-0.045) ng/ml Total Protein (6.4-8.2) gm/dl Albumin (3.4-5.0) gm/dl Globulin (2.5-4.0) gm/dl Albumin/Globulin Ratio (0.9-2) Lipase (73-393) U/L TSH (0.300-4.500) uIu/ml COVID-19 Eval Order Covid19 at [facility] SARS-CoV-2 (PCR) NEGATIVE (Negative) Imaging Data Attestation: I personally reviewed and interpreted this imaging study as follows: My Impression: Chest x-raymild increased interstitial markings but no pneumothorax consolidation to suggest pneumonia or any definite CHF Radiologist's Impression: Chest X-Ray 04/29/21 07:08 XR chest 1V portable CLINICAL HISTORY: Chest Pain COMPARISON STUDY: Chest radiograph January 29, 2021. FINDINGS: Lung volumes are normal. Lungs are clear. There is no pneumothorax or pleural effusion. Mild cardiomegaly is stable. Mediastinal contours are normal. There is no evidence for pulmonary edema. Postoperative findings within the spine are partially imaged. IMPRESSION: No acute cardiopulmonary findings. ACT 112: Negative or not required by law. Electronically signed by: Govind Garnica M.D. 04/29/2021 7:36 AM Chest CTA 04/29/21 07:59 CHEST CTA for AORTIC DISSECTION CT DOSE: 1708.68 mGy.cm HISTORY: Right-sided chest pain. TECHNIQUE: Multiaxial CT images of the chest were performed both before and after the intravenous administration of contrast to evaluate the aorta. Maximal intensity projection images were also obtained. A dose lowering technique was utilized adhering to the principles of ALARA. COMPARISON STUDY: None. FINDINGS: Noncontrast imaging through the chest shows no evidence for an intramural hematoma within the thoracic aorta. There is normal caliber thoracic aorta with no evidence for dissection. The heart is borderline enlarged. The central pulmonary arteries are patent. Partially visualized posterior fusion hardware within the cervicothoracic junction. No fractures within the visualized osseous structures. Limited views of the upper abdomen demonstrate normal liver, spleen, and adrenal glands. There is a 1.5 cm left thyroid nodule. No mediastinal or hilar lymphadenopathy. No pleural or pericardial effusions. Normal esophagus. No pneumothorax. The central airways are patent. A 4 mm subpleural nodule within the left upper lobe on image 80. A 3 mm subpleural nodule within the lingula on image 132. A 3 mm nodule within the left lower lobe on image 135. A 4 mm nodule within the right lower lobe on image 99. No focal lung consolidations to suggest pneumonia. IMPRESSION: 1. No evidence for an aortic dissection. 2. A few scattered subcentimeter indeterminate pulmonary nodules measuring up to 4 mm. Please refer to the chart below for recommended follow-up. 3. A 1.5 cm left thyroid nodule. Follow-up nonemergent thyroid ultrasound is recommended for further evaluation. Please refer to below summary of Fleischner criteria recommendations for follow- up of incidental CT nodules (Manan Person, Guidelines for management of small pulmonary nodules detected on CT scans: A statement from the Fleischner Society, Radiology 237: [phone].) SOLID NODULES Solitary nodule size: <6 mm * Low risk patients: no follow-up needed * high risk patients: optional CT at 12 months Solitary nodule size: 6-8 mm * Low risk patients: follow-up at 6-12 months, then consider further follow-up at 18-24 months * high risk patients: initial follow-up CT at 6-12 months and then at 18-24 months if no change Solitary nodule size: >8 mm * either low or high risk patients - consider follow-up CT at 3 months, and/or CT-PET, and/or biopsy Multiple nodules size: <6 mm * Low risk patients: no routine follow-up * high risk patients: optional CT at 12 months Multiple nodules size: 6-8 mm * Low risk patients: follow-up at 3-6 months, then consider further follow-up at 18-24 months * high risk patients: follow-up at 3-6 months, then at 18-24 months if no change Multiple nodules size: >8 mm * Low risk patients: follow-up at 3-6 months, then consider further follow-up at 18-24 months * high risk patients: follow-up at 3-6 months, then at 18-24 months if no change Note: newly detected indeterminate nodule in persons 35 years of age or older. * Low risk patients: minimal or absent history of smoking and/or other known risk factors * high risk patients: history of smoking or of other known risk factors (e.g. first degree relative with lung cancer, or exposure to asbestos, radon, uranium) * if a nodule up to 8 mm is partly solid or is ground glass further follow-up is required after 24 months to exclude possible slow growing adenocarcinoma ([place]) SUBSOLID NODULES Solitary pure ground-glass nodule * nodule size <6 mm - no CT follow-up required * nodule size >=6 mm - follow-up CT at 6-12 months, then every 2 years until 5 years Solitary part-solid nodule * nodule size <6 mm - no CT follow-up required * nodule size >=6 mm - follow-up CT at 3-6 months. If unchanged, and solid component remains <6 mm, then annual follow-up for 5 years Multiple subsolid nodules * nodule size <6 mm - follow-up CT at 3-6 months, consider further follow-up at 2 and 4 years if stable * nodule size >=6 mm - follow-up CT at 3-6 months, subsequent management based on the most suspicious nodule(s) ACT 112: Negative or not required by law. Electronically signed by: Domingo Valentine M.D. 04/29/2021 8:56 AM ECG Data Attestation: I personally reviewed and interpreted this ECG as follows: Indication: + chest pain and + SOB/dyspnea Rate (beats per minute): 88 Rhythm: + normal sinus ECG Intervals/blocks: + Normal QRS, + Normal QT and + Normal HI ECG [place]: + Normal ECG ST segments: + Normal ST segments ECG Findings: no PACs or no PVCs Comparison ECG Date: from (01/29/21) Change: no significant change Additional Comments: EKG #2: Normal sinus rhythm with a rate of 79. No acute ischemic changes or ectopy. No significant change compared EKG #1 MDM Narrative This patient comes in as described above. She was placed on a laboratory monitor room A3. She is here for treatment evaluation of chest pain or shortness of breath. She was noted to be hypertensive also. She does seem somewhat anxious which could be playing a role here. She did take a baby aspirin at 1:00 in the morning but I did give her a full-strength adult aspirin here. I also gave her sublingual nitroglycerin to help with the pain and also potential blood pressure control. Multiple blood testing was obtained. EKG was obtained as well as chest x-ray. She was reassessed frequently. She did receive a total of 3 sublingual nitros and this brought her pain down significantly. She was also given an inch of nitroglycerin paste as well as morphine 2 mg IV. Her blood pressure also came down significantly. CTA of the chest was negative. [facility] for further cardiac work-up and evaluation and management of her blood pressure as well. Continuous cardiac monitoring: Orders placed in EMR for continuous cardiac monitoring given the patient's chief complaint of chest pain. Upon my interpretation she was noted to be in normal sinus rhythm with a rate of 82. Impression & Plan Chest pain, Hypertensive urgency, Lab test negative for COVID-19 virus, Short ness of breath Discharge Plan Visit Data Chief Complaint: Chest Pain Stated Complaint: CHEST PAIN,SHORTNESS OF BREATH ED Provider: Celestine Sharp Discharge Problem: Chest pain, Hypertensive urgency, Lab test negative for COVID-19 virus, Shortness of breath Patient Disposition: Admitted As Inpatient Discharge Instructions Interventions: ED Discharge Assessment Last Done: 04/29/21 10:40
[2021-04-29] MEDS: NITROGLYCERIN SL 0.4 MG/TAB TAB SL PRN ×3 (07:23→08:05)
[2021-04-29 07:25] LABS: Basophils # (auto) 0.06 K/uL (0-0.2); Basophils % (auto) 0.8 %; Eosinophils # (auto) 0.21 K/uL (0-0.5); Eosinophils % (auto) 2.9 %; Hematocrit (blood only) 41.6 % (37-47); Hemoglobin 14.3 g/dL (12.0-16.0); Immature Granulocytes # (auto) 0.02 K/uL (0.00-0.02); Immature Granulocytes % (auto) 0.3 %; Lymphocytes # (auto) 2.48 K/uL (1.2-3.4); Lymphocytes % (auto) 34.5 %; Mean Corpuscular Hemoglobin 33.4 pg (25-34); Mean Corpuscular Hgb Conc 34.4 g/dL (32-36); Mean Corpuscular Volume 97.2 fL (80-100); Mean Platelet Volume 10.9 fL (7.4-10.4); Monocytes # (auto) 0.56 K/uL (0.11-0.59); Monocytes % (auto) 7.8 %; Neutrophils # (auto) 3.85 K/uL (1.4-6.5); Neutrophils % (auto) 53.7 %; Platelet Count 212 K/uL (130-400); RDW Coefficient of Variation 13.2 % (11.5-14.5); Red Blood Count 4.28 M/uL (4.2-5.4); White Blood Count 7.18 K/uL (4.8-10.8)
--- NOTE | 2021-04-29 07:38 | XRay Report ---
XR chest 1V portable CLINICAL HISTORY: Chest Pain COMPARISON STUDY: Chest radiograph January 29, 2021. FINDINGS: Lung volumes are normal. Lungs are clear. There is no pneumothorax or pleural effusion. Mil d cardiomegaly is stable. Mediastinal contours are normal. There is no evidence for pulmonary edema. Postoperative findings within the spine are partially imaged. IMPRESSION: No acute cardiopulmonary findings. ACT 112: Negative or not required by law. Electronically signed by: Govind Garnica M.D. 04/29/2021 7:36 AM
[2021-04-29 07:42] LABS: Alanine Aminotransferase 31 U/L (12-78); Albumin Level 3.7 gm/dl (3.4-5.0); Aspartate Aminotransferase 18 U/L (15-37); BUN Creatinine Ratio 22.4 (10-20); Blood Urea Nitrogen 16 mg/dl (7-18); Calcium 9.2 mg/dl (8.5-10.1); Carbon Dioxide 27 mmol/L (21-32); Chloride 103 mmol/L (98-107); Creatinine Clr Calc Pharmacy 119.3 ml/min; Est GFR (African American) 107.5 ml/min; Est GFR (Non-African American) 92.7 ml/min; Glucose 100 mg/dl (70-99); Lipase 104 U/L (73-393); Potassium 3.4 mmol/L (3.5-5.1); Sodium 136 mmol/L (136-145)
[2021-04-29 07:46] LABS: Alkaline Phosphatase 102 U/L (45-117); Bilirubin,Total 0.6 mg/dl (0.2-1); Globulin 3.8 gm/dl (2.5-4.0); Total Protein 7.5 gm/dl (6.4-8.2); Troponin I < 0.015 ng/ml (0-0.045)
[2021-04-29] MEDS ORDERED: ONDANSETRON INJ 2 MG/ML 2 ML VIAL ONE (07:59)
[2021-04-29] MEDS ORDERED: ONDANSETRON INJ 2 MG/ML 2 ML VIAL IV STA ×2 (07:59→08:55)
[2021-04-29] MEDS ORDERED: NITROGLYCERIN 2% OINTMENT 30GM TUBE EXT ONE (08:17)
[2021-04-29] MEDS ORDERED: OPTIRAY 320 125ml IV ONE (08:29)
[2021-04-29] MEDS ORDERED: MoRPHine SULFATE 2 MG/ML CARP IV STA (08:55)
--- NOTE | 2021-04-29 08:57 | CT Scan Report ---
CHEST CTA for AORTIC DISSECTION CT DOSE: 1708.68 mGy.cm HISTORY: Right-sided chest pain. TECHNIQUE: Multiaxial CT images of the chest were performed both before and after the intravenous adm inistration of contrast to evaluate the aorta. Maximal intensity projection images were also obtained . A dose lowering technique was utilized adhering to the principles of ALARA. COMPARISON STUDY: None. FINDINGS: Noncontrast imaging through the chest shows no evidence for an intramural hematoma within t he thoracic aorta. There is normal caliber thoracic aorta with no evidence for dissection. The heart is borderline enlarged. The central pulmonary arteries are patent. Partially visualized posterior fus ion hardware within the cervicothoracic junction. No fractures within the visualized osseous structur es. Limited views of the upper abdomen demonstrate normal liver, spleen, and adrenal glands. There is a 1.5 cm left thyroid nodule. No mediastinal or hilar lymphadenopathy. No pleural or pericardial eff usions. Normal esophagus. No pneumothorax. The central airways are patent. A 4 mm subpleural nodule w ithin the left upper lobe on image 80. A 3 mm subpleural nodule within the lingula on image 132. A 3 mm nodule within the left lower lobe on image 135. A 4 mm nodule within the right lower lobe on image 99. No focal lung consolidations to suggest pneumonia. IMPRESSION: 1. No evidence for an aortic dissection. 2. A few scattered subcentimeter indeterminate pulmonary nodules measuring up to 4 mm. Please refer t o the chart below for recommended follow-up. 3. A 1.5 cm left thyroid nodule. Follow-up nonemergent thyroid ultrasound is recommended for further evaluation. Please refer to below summary of Fleischner criteria recommendations for follow-up of incidental CT n odules (Manan Person, Guidelines for management of small pulmonary nodules detected on CT scans: A sta tement from the Fleischner Society, Radiology 237: [id number].) SOLID NODULES Solitary nodule size: <6 mm * Low risk patients: no follow-up needed * high risk patients: optional CT at 12 months Solitary nodule size: 6-8 mm * Low risk patients: follow-up at 6-12 months, then consider further follow-up at 18-24 months * high risk patients: initial follow-up CT at 6-12 months and then at 18-24 months if no change Solitary nodule size: >8 mm * either low or high risk patients - consider follow-up CT at 3 months, and/or CT-PET, and/or biopsy Multiple nodules size: <6 mm * Low risk patients: no routine follow-up * high risk patients: optional CT at 12 months Multiple nodules size: 6-8 mm * Low risk patients: follow-up at 3-6 months, then consider further follow-up at 18-24 months * high risk patients: follow-up at 3-6 months, then at 18-24 months if no change Multiple nodules size: >8 mm * Low risk patients: follow-up at 3-6 months, then consider further follow-up at 18-24 months * high risk patients: follow-up at 3-6 months, then at 18-24 months if no change Note: newly detected indeterminate nodule in persons 35 years of age or older. * Low risk patients: minimal or absent history of smoking and/or other known risk factors * high risk patients: history of smoking or of other known risk factors (e.g. first degree relative with lung cancer, or exposure to asbestos, radon, uranium) * if a nodule up to 8 mm is partly solid or is ground glass further follow-up is required after 24 m ont to exclude possible slow growing adenocarcinoma (MONICA) SUBSOLID NODULES Solitary pure ground-glass nodule * nodule size <6 mm - no CT follow-up required * nodule size >=6 mm - follow-up CT at 6-12 months, then every 2 years until 5 years Solitary part-solid nodule * nodule size <6 mm - no CT follow-up required * nodule size >=6 mm - follow-up CT at 3-6 months. If unchanged, and solid component remains <6 mm, then annual follow-up for 5 years Multiple subsolid nodules * nodule size <6 mm - follow-up CT at 3-6 months, consider further follow-up at 2 and 4 years if sta ble * nodule size >=6 mm - follow-up CT at 3-6 months, subsequent management based on the most suspiciou s nodule(s) ACT 112: Negative or not required by law. Electronically signed by: Domingo Valentine M.D. 04/29/2021 8:56 AM
[2021-04-29 09:06] LABS: Partial Thromboplastin Time 26.2 Seconds (21.0-31.0)
[2021-04-29] MEDS ORDERED: POTASSIUM CHLORIDE CRTAB 20 MEQ TABCR PO ONE (09:11)
[2021-04-29] MEDS ORDERED: amLODIPine BESYLATE 5 MG TAB PO ONE (09:29)
[2021-04-29] MEDS ORDERED: POTASSIUM CHLORIDE 10 MEQ TABCR PO ONE (09:40)
[2021-04-29] MEDS ORDERED: amLODIPine BESYLATE 5 MG TAB ONE (09:40)
--- NOTE | 2021-04-29 09:43 | History & Physical Report ---
Date of Service April 29, 2021 Assessment & Plan (1) Chest pain: Plan: (2) Hypertensive urgency: Plan: -admit to tele -patient presenting from work after experiencing sudden onset chest pain -risk factors: HTN, obesity, tobacco abuse, + family history -in the ED, found to be significantly hypertensive with BP 206/142 -initial troponin negative, EKG without acute ST changes, CTA chest negative for dissection -symptoms likely due to hypertensive urgency -continue to trend troponin, chest resting echo -continue home HCTZ and add on amlodipine 5mg, consider increasing to 10mg if needed (3) Lung nodules: Plan: -CTA chest showed a few scattered subcentimeter indeterminate pulmonary nodules measuring up to 4 mm. -outpatient follow up (4) Thyroid nodule: Plan: -CTA chest showed a 1.5 cm left thyroid nodule -check TSH -outpatient thyroid US (5) DVT prophylaxis: Plan: -SCDs History of Present Illness Chief Complaint: Chest Pain Primary Care Provider: Giuseppe Andre MD 55 year old female with PMH HTN, osteoarthritis, and other problems listed below who presents to the ED for evaluation of chest pain. Patient reports that while at work this morning around 6AM, she developed a mid sternal chest pain that radiated over to her right shoulder. She described the pain as severe, sharp, and now has a pressure like sensation. She rates the pain #8/10 at it's worst. She had associated diaphoresis, nausea, shortness of breath, and lightheadedness. Patient reports she otherwise has been feeling well recently. No other recent illnesses, fever, or chills. Denies abdominal pain, vomiting, and diarrhea. No unintentional weight loss or weight gain. Denies urinary symptoms. In the ED, patient was found to be significantly hypertensive at 206/142. She was given SL nitro x 3 and 1 inch nitro paste. BP improved. Initial troponin is negative, EKG without acute ST changes. CTA chest negative for dissection. Allergies Allergy/AdvReac Type Severity Reaction Status Date / Time chlorhexidine Allergy Intermediate SEVERE Verified 04/29/21 08:14 ITCHING codeine Allergy Intermediate Hives Verified 04/29/21 08:14 Home Medications Medication Instructions Recorded Confirmed Type multivitamin 1 tab PO DAILY@0200 #0 tab 07/23/16 04/29/21 History aspirin 81 mg tablet,delayed 81 mg PO DAILY@0200 04/28/19 04/29/21 History release hydrochlorothiazide 25 mg tablet 25 mg PO DAILY@0200 04/28/19 04/29/21 History omega-3 fatty acids 1,000 mg 1,000 mg PO DAILY@0200 04/28/19 04/29/21 History capsule (Fish Oil Concentrate) potassium gluconate 595 mg (99 mg) 99 mg PO DAILY@02009/07/19 04/29/21 History tablet omeprazole 20 mg capsule,delayed 20 mg PO DAILY@02009/15/19 04/29/21 History release linaclotide 145 mcg capsule 145 mcg PO DAILY@02001/29/21 04/29/21 History (Linzess) Past Med/Surg History Medical History Degenerative disc disease CERVICAL History of colitis History of colon polyps Hypertension Morbid obesity with BMI of 40.0-44.9, adult Osteoarthritis Shingles Surgical History H/O cervical spine surgery X 4 SURGERIES (HARDWARE INTACT) GOOD ROM IF SLOWLY TURNED H/O vein stripping RT/LEFT LEGS History of ankle surgery LEFT TOTAL ANKLE ARTHROPLASTY History of colonoscopy with polypectomy History of esophagogastroduodenoscopy (EGD) History of hysterectomy with unilateral oophorectomy History of laparoscopy History of tonsillectomy Hx of tubal ligation Family History Mother Family history of diabetes mellitus Father Family hx colonic polyps AAA (abdominal aortic aneurysm) Heart disease Brother Heart disease Other No family history of adverse response to anesthesia Social History Smoking Status: Current some day smoker Second Hand Exposure: No; Hx Alcohol Use: Yes Alcohol type: beer and wine Hx Substance Use: No Preferred Language: Maltese Communication Ability: Effective Patient Accounts Specialist Required: No Beliefs That Will Affect Care: None Current Living Situation: Spouse and Family Current Living Situation Comment: Lives with and adult son with MS Other Information That Helps Us Care for You: No Feels Safe at Home: Yes Safety Concerns: Feels Safe At This Time Assistive Devices: Contacts Review of Systems Review of Systems: ROS per HPI, all other systems reviewed and negative Physical Exam Constitutional: WD/WN, vitals as above Eyes: PERRL, conjunctivae normal, anicteric sclerae ENMT: external ear and nose normal, oropharynx normal Respiratory: normal respiratory effort, lungs clear to auscultation Cardiovascular: Rate/Rhythm: regular rate and regular rhythm Vessels: normal peripheral pulses Extremities: + edema (+2 LLE, +1 RLE (chronic)) Gastrointestinal (Abdomen): normal bowel sounds, soft, nontender, no hepatosplenomegaly Musculoskeletal: no cyanosis or clubbing, extremities motor strength 5/5 Extremities: + chronic stasis changes Skin: no rashes, warm and dry Neurologic: PERRL, EOMI, accommodation nl, no face palsy, no dysarthria Psychiatric: A+Ox3, euthymic affect Results & Data Results & Data ([facility]) Vital Signs (Past 12 Hours) Vital Signs Temp Pulse Pulse Resp BP Pulse Ox 04/29/21 08:00 80 16 154/115 H 97 04/29/21 07:15 95 04/29/21 07:00 85 16 190/130 H 97 04/29/21 06:59 83 18 200/131 H 98 04/29/21 06:57 81 97 04/29/21 06:40 36.7 C 90 20 206/142 H 98 Laboratory Results Short CBC 04/29/21 Range/Units 06:55 WBC 7.18 (4.8-10.8) K/uL Hgb 14.3 (12.0-16.0) g/dL Hct 41.6 (37-47) % Plt Count 212 (130-400) K/uL BMP 04/29/21 06:55 Sodium 136 Potassium 3.4 L Chloride 103 Carbon Dioxide 27 BUN 16 Creatinine 0.73 Glucose 100 H Calcium 9.2 Cardiac Enzymes 04/29/21 Range/Units 06:55 Troponin I < 0.015 (0-0.045) ng/ml Liver Function 04/29/21 Range/Units 06:55 Total Bilirubin 0.6 (0.2-1) mg/dl AST 18 (15-37) U/L ALT 31 (12-78) U/L Alkaline Phosphatase 102 (45-117) U/L Albumin 3.7 (3.4-5.0) gm/dl Diagnostic Findings Chest X-Ray 04/29/21 07:08 XR chest 1V portable CLINICAL HISTORY: Chest Pain COMPARISON STUDY: Chest radiograph January 29, 2021. FINDINGS: Lung volumes are normal. Lungs are clear. There is no pneumothorax or pleural effusion. Mild cardiomegaly is stable. Mediastinal contours are normal. There is no evidence for pulmonary edema. Postoperative findings within the spine are partially imaged. IMPRESSION: No acute cardiopulmonary findings. ACT 112: Negative or not required by law. Electronically signed by: Govind Garnica M.D. 04/29/2021 7:36 AM Chest CTA 04/29/21 07:59 CHEST CTA for AORTIC DISSECTION CT DOSE: 1708.68 mGy.cm HISTORY: Right-sided chest pain. TECHNIQUE: Multiaxial CT images of the chest were performed both before and after the intravenous administration of contrast to evaluate the aorta. Maximal intensity projection images were also obtained. A dose lowering technique was utilized adhering to the principles of ALARA. COMPARISON STUDY: None. FINDINGS: Noncontrast imaging through the chest shows no evidence for an intramural hematoma within the thoracic aorta. There is normal caliber thoracic aorta with no evidence for dissection. The heart is borderline enlarged. The central pulmonary arteries are patent. Partially visualized posterior fusion hardware within the cervicothoracic junction. No fractures within the visualized osseous structures. Limited views of the upper abdomen demonstrate normal liver, spleen, and adrenal glands. There is a 1.5 cm left thyroid nodule. No mediastinal or hilar lymphadenopathy. No pleural or pericardial effusions. Normal esophagus. No pneumothorax. The central airways are patent. A 4 mm subpleural nodule within the left upper lobe on image 80. A 3 mm subpleural nodule within the lingula on image 132. A 3 mm nodule within the left lower lobe on image 135. A 4 mm nodule within the right lower lobe on image 99. No focal lung consolidations to suggest pneumonia. IMPRESSION: 1. No evidence for an aortic dissection. 2. A few scattered subcentimeter indeterminate pulmonary nodules measuring up to 4 mm. Please refer to the chart below for recommended follow-up. 3. A 1.5 cm left thyroid nodule. Follow-up nonemergent thyroid ultrasound is recommended for further evaluation. Please refer to below summary of Fleischner criteria recommendations for follow- up of incidental CT nodules (Manan Person, Guidelines for management of small pulmonary nodules detected on CT scans: A statement from the Fleischner Society, Radiology 237: [id number] 1565.) SOLID NODULES Solitary nodule size: <6 mm * Low risk patients: no follow-up needed * high risk patients: optional CT at 12 months Solitary nodule size: 6-8 mm * Low risk patients: follow-up at 6-12 months, then consider further follow-up at 18-24 months * high risk patients: initial follow-up CT at 6-12 months and then at 18-24 months if no change Solitary nodule size: >8 mm * either low or high risk patients - consider follow-up CT at 3 months, and/or CT-PET, and/or biopsy Multiple nodules size: <6 mm * Low risk patients: no routine follow-up * high risk patients: optional CT at 12 months Multiple nodules size: 6-8 mm * Low risk patients: follow-up at 3-6 months, then consider further follow-up at 18-24 months * high risk patients: follow-up at 3-6 months, then at 18-24 months if no change Multiple nodules size: >8 mm * Low risk patients: follow-up at 3-6 months, then consider further follow-up at 18-24 months * high risk patients: follow-up at 3-6 months, then at 18-24 months if no change Note: newly detected indeterminate nodule in persons 35 years of age or older. * Low risk patients: minimal or absent history of smoking and/or other known risk factors * high risk patients: history of smoking or of other known risk factors (e.g. first degree relative with lung cancer, or exposure to asbestos, radon, uranium) * if a nodule up to 8 mm is partly solid or is ground glass further follow-up is required after 24 months to exclude possible slow growing adenocarcinoma (MONICA) SUBSOLID NODULES Solitary pure ground-glass nodule * nodule size <6 mm - no CT follow-up required * nodule size >=6 mm - follow-up CT at 6-12 months, then every 2 years until 5 years Solitary part-solid nodule * nodule size <6 mm - no CT follow-up required * nodule size >=6 mm - follow-up CT at 3-6 months. If unchanged, and solid component remains <6 mm, then annual follow-up for 5 years Multiple subsolid nodules * nodule size <6 mm - follow-up CT at 3-6 months, consider further follow-up at 2 and 4 years if stable * nodule size >=6 mm - follow-up CT at 3-6 months, subsequent management based on the most suspicious nodule(s) ACT 112: Negative or not required by law. Electronically signed by: Domingo Valentine M.D. 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 Patient had recently been camping over the weekend for 3 days. Patient has reproducible right-sided chest pain, continuous, sharp in nature, started 8 out of 10, 4.5 out of 10 at bedside exam. BLE 1+ edema present, chronic per patient. She smokes 2 cigarettes a week. Drinks alcohol up to 3 can of beer at a time over the weekends. We will manage patient for chest pain, trend troponin, follow echo. Also manage patient for uncontrolled hypertension. GENERAL: Alert and oriented x3. NAD, on RA. HEENT: No pallor, no icterus. Pupils equal, round and reactive to light. Oral mucosa moist. Chest: Reproducible right chest pain NECK: No JVD, no neck masses. HEART: S1 and S2 heard. Regular rate and rhythm. No murmur, no gallop. RESPIRATORY SYSTEM: Normal AP diameter. No accessory muscle use. No wheezing, no crackles. ABDOMEN: Soft, bowel sounds present, nontender, no distention. CENTRAL NERVOUS SYSTEM: Alert and oriented x3. No facial droop. Speech is clear. Obeys simple commands. Moves extremities. EXTREMITIES: BLE 1+ edema, no erythema seen. Left leg has chronic skin changes [history of left ankle reconstruction] I have seen and examined the patient and have discussed the case with the provider above. I agree with the assessment and plan as stated.
[2021-04-29] MEDS ORDERED: NITROGLYCERIN SL 0.4 MG/TAB TAB SL PRN (11:27)
[2021-04-29] MEDS ORDERED: ONDANSETRON INJ 2 MG/ML 2 ML VIAL IV PRN (11:27)
[2021-04-29] MEDS: ACETAMINOPHEN 325 MG TAB PO PRN ×3 (13:08→21:37)
--- NOTE | 2021-04-29 15:46 | Electrocardiogram Report ---
Test Reason : Blood Pressure : / mmHG Vent. Rate : 088 BPM Atrial Rate : 088 BPM P-R Int : 166 ms QRS Dur : 092 ms QT Int : 370 ms P-R-T Axes : 049 007 033 degrees QTc Int : 447 ms Normal sinus rhythm Possible Left atrial enlargement Borderline ECG When compared with ECG of 29-JAN-2021 20:28, No significant change was found Confirmed by Jas Barnes ([id number]) on 04/29/2021 3:46:12 PM Referred By: REFERRED SELF Confirmed By:Jas Barnes
--- NOTE | 2021-04-29 15:51 | Electrocardiogram Report ---
Test Reason : Blood Pressure : / mmHG Vent. Rate : 079 BPM Atrial Rate : 079 BPM P-R Int : 170 ms QRS Dur : 090 ms QT Int : 396 ms P-R-T Axes : 050 001 020 degrees QTc Int : 454 ms Normal sinus rhythm Normal ECG When compared with ECG of 29-APR-2021 06:50, (unconfirmed) No significant change was found Confirmed by Jas Barnes ([id number]) on 04/29/2021 3:51:32 PM Referred By: REFERRED SELF Confirmed By:Jas Barnes
[2021-04-30] MEDS: ACETAMINOPHEN 325 MG TAB PO PRN (01:49)
[2021-04-30] MEDS ORDERED: traMADol HCL 50 MG TABLET PO PRN (01:56)
[2021-04-30 07:04] LABS: Hematocrit (blood only) 41.1 % (37-47); Hemoglobin 13.3 g/dL (12.0-16.0); Mean Corpuscular Hemoglobin 32.6 pg (25-34); Mean Corpuscular Hgb Conc 32.4 g/dL (32-36); Mean Corpuscular Volume 100.7 fL (80-100); Platelet Count 211 K/uL (130-400); RDW Coefficient of Variation 13.4 % (11.5-14.5); RDW Standard Deviation 49.5 fL (36.4-46.3); Red Blood Count 4.08 M/uL (4.2-5.4)
--- NOTE | 2021-04-30 07:10 | CT Scan Report ---
CT OF THE HEAD WITHOUT CONTRAST CLINICAL HISTORY: Headache. COMPARISON STUDY: Head CT and CTA of the head January 29, 2021. CT DOSE: 537.48 mGy.cm TECHNIQUE: Helical axial images of the head were obtained without IV contrast. Automated exposure con trol was utilized for the study. A dose lowering technique was utilized adhering to the principles o f ALARA. FINDINGS: No acute intracranial hemorrhage, midline shift or mass effect is present. The ventricular system is unremarkable. The basal cisterns are patent. No extra-axial collections are present. There are no findings to suggest acute dural sinus thrombosis or acute territorial infarct. No significant calvarial abnormalities are present. Visualized portions of the sinuses and mastoid air cells are beatriz ar. IMPRESSION: No acute intracranial findings. ACT 112: Negative or not required by law. Electronically signed by: Govind Garnica M.D. 04/30/2021 7:08 AM
[2021-04-30 07:40] LABS: BUN Creatinine Ratio 18.3 (10-20); Calcium 8.6 mg/dl (8.5-10.1); Creatinine Clr Calc Pharmacy 142.8 ml/min; Est GFR (African American) 118.3 ml/min; Est GFR (Non-African American) 102.1 ml/min; Potassium 3.6 mmol/L (3.5-5.1)
[2021-04-30] MEDS ORDERED: OMEGA-3 (PURIFIED FISH OIL) 1 GM CAP PO SCH (09:00)
[2021-04-30] MEDS ORDERED: ASPIRIN 81 MG ECTAB PO SCH (09:00)
[2021-04-30] MEDS ORDERED: PANTOprazole 40 MG TAB PO SCH (09:00)
[2021-04-30] MEDS ORDERED: amLODIPine BESYLATE 5 MG TAB PO SCH (09:00)
[2021-04-30] MEDS ORDERED: hydroCHLOROthiazide 25 MG TAB PO SCH (09:00)
[2021-04-30] MEDS ORDERED: LINACLOTIDE 145 MCG CAPSULE PO SCH (09:00)
--- NOTE | 2021-04-30 10:37 | Cardiology Consultation ---
Date of Consultation April 30, 2021 Assessment & Plan (1) Hypertensive urgency: Blood pressure has improved with the measures detailed above. Continue home hydrochlorothiazide. Continue amlodipine at 5 mg/day which was added this admission. Add losartan 25 mg/day. Avoid rate lowering medications given resting bradycardia. Nonpharmacologic treatment of hypertension discussed. (2) Chest pain: Atypical. Reproducible with palpation of the chest wall. General measures advised. Patient with multiple cardiac risk factors including hypertension, dyslipidemia, chronic tobacco abuse, obesity, and family history. Recommend referral for Lexiscan nuclear stress testing once blood pressure is controlled. Risk factor and lifestyle modification discussed. Supervising Physician Co-Signing Physician Notes Patient seen and examined with Paco Strickland PA-C. Agree with findings and assessment as above. Chest pain is reproducible with no signs of active ischemia. Blood pressure improved with initiation of amlodipine, will start losartan as well. Will perform Lexiscan nuclear stress test as an outpatient. Okay to discharge to home from a cardiac standpoint. Will need follow-up BMP in 1 week given addition of losartan. Also recommend home blood pressure monitor. History of Present Illness Reason for Consultation: Hypertensive urgency, chest pain Requesting Physician: Jase Attending Physician: Kanwal History of Present Illness Mrs. Amanda Hunter is a very pleasant 55-year-old female who works a 3 AM to 1:30 PM shift at [employer]. She was in her usual state of health, at work, folding towels on the table when she suddenly developed a pressure/pain in the right side of her chest. She notes never experiencing anything like this before. She notes becoming scared because of her family history then diaphoretic, somewhat weak, nauseous, and dyspneic. She notes grabbing her phone, going to the restroom, and calling her . She then drove herself to the emergency room where she was evaluated by Dr. Sharp. Blood pressure on presentation was 206/142. EKG showed no acute change. Troponin negative on presentation and subsequently x3. Chest x-ray showed no acute cardiopulmonary findings. Chest CTA for aortic dissection revealed a normal caliber thoracic aorta with no evidence of dissection. Central pulmonary arteries were notably patent. Incidental findings included a 1.5 cm left thyroid nodule and a few scattered subcentimeter indeterminate pulmonary nodules measuring up to 4 mm. Blood pressure and symptoms improved following administration of sublingual nitroglycerin. Resting echocardiography on April 29, 2021 revealed normal size LV with moderate concentric left ventricular hypertrophy. Systolic function was normal, with an ejection fraction of 55 to 60%, without segmental left ventricular wall motion abnormalities. Grade 1 diastolic dysfunction noted. No significant valvular pathology observed. Additional antihypertensive therapy included the addition of amlodipine. Last blood pressure reading was 143/86. The patient continues to have some right-sided chest discomfort that is clearly reproducible with palpation and a headache that is improved following the administration of tramadol. Social History: She describes herself as a former smoker who quit years ago however on further questioning she notes occasionally smoking rare cigarette than throwing the rest away. Alcohol: 3 beers on the weekends. No illegal drug use. . 2 boys, without cardiac issues Family History: Father, in October 2019, underwent abdominal aortic aneurysm repair without difficulty. Mother has a history of diabetes mellitus and a remote history of pulmonary embolism. Maternal aunt had a history of [place] and also underwent valvular intervention at the [facility]. Brother underwent PCI of the LAD at [facility] approximately 3 years ago. Paternal grandmother with an [place] at the age of 53. Allergies Allergy/AdvReac Type Severity Reaction Status Date / Time chlorhexidine Allergy Intermediate SEVERE Verified 04/29/21 08:14 ITCHING codeine Allergy Intermediate Hives Verified 04/29/21 08:14 Home Medications Medication Instructions Recorded Confirmed Type multivitamin 1 tab PO DAILY@0200 #0 tab 07/23/16 04/29/21 History aspirin 81 mg tablet,delayed 81 mg PO DAILY@0200 04/28/19 04/29/21 History release hydrochlorothiazide 25 mg tablet 25 mg PO DAILY@0200 04/28/19 04/29/21 History omega-3 fatty acids 1,000 mg 1,000 mg PO DAILY@0200 04/28/19 04/29/21 History capsule (Fish Oil Concentrate) potassium gluconate 595 mg (99 mg) 99 mg PO DAILY@0200 09/07/19 04/29/21 History tablet omeprazole 20 mg capsule,delayed 20 mg PO DAILY@0200 09/15/19 04/29/21 History release linaclotide 145 mcg capsule 145 mcg PO DAILY@0200 01/29/21 04/29/21 History (Linzess) Patient History Medical History Degenerative disc disease CERVICAL History of colitis History of colon polyps Hypertension Morbid obesity with BMI of 40.0-44.9, adult Osteoarthritis Shingles Surgical History H/O cervical spine surgery X 4 SURGERIES (HARDWARE INTACT) GOOD ROM IF SLOWLY TURNED H/O vein stripping RT/LEFT LEGS History of ankle surgery LEFT TOTAL ANKLE ARTHROPLASTY History of colonoscopy with polypectomy History of esophagogastroduodenoscopy (EGD) History of hysterectomy with unilateral oophorectomy History of laparoscopy History of tonsillectomy Hx of tubal ligation Family History Mother Family history of diabetes mellitus Father Family hx colonic polyps AAA (abdominal aortic aneurysm) Heart disease Brother Heart disease Other No family history of adverse response to anesthesia Social History Smoking Status: Current some day smoker Second Hand Exposure: No; Hx Alcohol Use: Yes Alcohol type: beer and wine Hx Substance Use: No Preferred Language: Amharic Communication Ability: Effective Chief Of Production Required: No Beliefs That Will Affect Care: None marital status: Current Living Situation: Spouse and Family Current Living Situation Comment: Lives with and adult son with MS How many Children do You have: 2 Other Information That Helps Us Care for You: No Feels Safe at Home: Yes Safety Concerns: Feels Safe At This Time Assistive Devices: None Review of Systems Review of Systems: Complete Review of Systems: Constitutional: No fevers, sweats, or chills. HENT: Left cataract. No amaurosis fugax, macular degeneration, glaucoma Pulmonary: See above. Smoker. No history of asthma, emphysema, or COPD. No history of sleep apnea. No history of PE. Cardiac: No prior cardiac history. She specifically denies history of CAD, [place], CHF, arrhythmia, heart murmur, rheumatic fever, or scarlet fever. GI: Colitis. + Diverticulosis. + Internal hemorrhoids. No heartburn. No reflux. No dysphagia. No melena. No hematochezia. No kidney issues. No pancreas issues. No liver issues. No splenic issues. Vascular: No history of carotid artery disease, AAA, or lower extremity claudication/PAD. Hematologic: No coagulation disorder, anemia, or abnormal bleeding. Musculoskeletal: Chronic back pain. History of prior cervical spine intervention. Osteoarthritis. Extremities. History of vein stripping. Left ankle surgery. Skin: Varicose veins. No rash. Neurologic: No history of TIA/CVA, or seizure disorder. Female : History of tubal ligation no history of diabetes mellitus. Complete Review of Systems is as stated above, negative, or noncontributory. Physical Exam Physical Exam: Constitutional: Alert and oriented x3. No acute distress. Pleasant. Comfortable. Cooperative. Eyes: PER ENMT: Normocephalic. Atraumatic. Neck: Right carotid bruit Pulmonary: Decreased. Diminished. No abnormal breath sounds auscultated Cardiovascular: regular rate and rhythm, 60 bpm. No murmur. No rub. No gallop. Chest: Reproducible chest wall discomfort right of the sternum. GI: Positive bowel sounds. Soft. Nontender. No masses. Neurologic: No focal deficit Extremities: Stasis changes. Surgical scar left ankle. Minimal fluid retention, lymphedematous changes. Results & Data ([facility]) Vital Signs (Past 12 Hours) Vital Signs Temp Pulse Pulse Resp BP Pulse Ox 04/30/21 08:00 76 04/30/21 07:36 36.8 C 58 L 20 143/86 H 95 04/30/21 04:52 144/86 H 04/30/21 03:00 36.7 C 62 20 167/88 H 94 04/30/21 02:02 128/60 04/29/21 23:21 36.7 C 63 18 147/83 H 93 Laboratory Results Laboratory Results - last 24 hr 04/29/21 04/29/21 04/30/21 13:17 19:35 06:35 WBC 5.20 RBC 4.08 L Hgb 13.3 Hct 41.1 MCV 100.7 H MCH 32.6 MCHC 32.4 RDW Std Deviation 49.5 H RDW Coeff of Wilder 13.4 Plt Count 211 MPV 11.0 H Sodium Potassium Chloride Carbon Dioxide Anion Gap BUN Creatinine Est Cr Clr Drug Dosing Est GFR ( Amer) Est GFR (Non-Af Amer) BUN/Creatinine Ratio Glucose Calcium Troponin I < 0.015 < 0.015 Triglycerides Cholesterol LDL Cholesterol, Calc VLDL Cholesterol, Calc HDL Cholesterol Cholesterol/HDL Ratio 04/30/21 06:35 WBC RBC Hgb Hct MCV MCH MCHC RDW Std Deviation RDW Coeff of Wilder Plt Count MPV Sodium 140 Potassium 3.6 Chloride 107 Carbon Dioxide 29 Anion Gap 4.0 BUN 11 Creatinine 0.61 Est Cr Clr Drug Dosing 142.8 Est GFR ( Amer) 118.3 Est GFR (Non-Af Amer) 102.1 BUN/Creatinine Ratio 18.3 Glucose 97 Calcium 8.6 Troponin I Triglycerides 151 H Cholesterol 189 LDL Cholesterol, Calc 99 VLDL Cholesterol, Calc 30 HDL Cholesterol 60 Cholesterol/HDL Ratio 3 Diagnostic Findings Telemetry reveals sinus bradycardia/sinus rhythm with heart rates in the upper 50's and 60's. No significant arrhythmias observed. (1) Chest pain Chest pain type: unspecified Qualified Code(s): R07.9 - Chest pain, unspecified
--- NOTE | 2021-04-30 11:11 | Hospitalist Progress Note ---
Date of Service April 30, 2021 Assessment & Plan (1) Chest pain: Plan: (2) Hypertensive urgency: Plan: 55 yr old F who has significant PMH of HTN, borderline hypertriglyceridemia, tobacco abuse, +FH of CAD and obesity who presented to ED on 04/29 for chest pain and htn urgency risk factors: HTN, obesity, tobacco abuse, + family history in the ED, found to be significantly hypertensive with BP 206/142 Troponins and serial ecg negative for ACS BP improving with addition of amlodipine Discussed with cardiology - appreciate their recommendations continue HCTZ, amlodipine and add losartan 25mg daily Sx possibly due to HTN urgency as well as likely MSK component as it is reproducible, other possibility is R breast cyst echo EF 55-60%, mod LVH, grade 1 DD Lipid panel: Total chol 189, LDL 99, HDL 60, Trig 151 - Borderline Hypertriglyceridemia continue fish oil, recommend lifestyle and diet modifications (3) Lung nodules: Plan: CTA chest showed a few scattered subcentimeter indeterminate pulmonary nodules measuring up to 4 mm. outpatient follow up in 1 year (4) Thyroid nodule: Plan: CTA chest showed a 1.5 cm left thyroid nodule TSH wnl outpatient thyroid US (5) DVT prophylaxis: Plan: SCDs Admission and Anticipated Discharge Date Admission Date: April 29, 2021 Supervising Physician Co-Signing Physician Notes Patient is seen and examined at bedside. States having right-sided chest pain which is reproducible, improved from yesterday. Nausea, vomiting, diaphoresis, dyspnea resolved. Offers no other complaints. On exam patient is morbidly obese, no apparent distress, normocephalic atraumatic, EOMI, normal bowel sounds, clear to auscultation, S1-S2, no murmur, left greater than right lower extremity edema, + chest tenderness on palpation on the right side, abdomen soft, nontender, normal bowel sounds, alert, awake, oriented, grossly no focal deficits. Patient is admitted for chest pain rule out ACS Chest pain likely musculoskeletal in origin Hypertension contributing as well Blood pressure medications adjusted. Added losartan. Continue amlodipine, HCTZ Cardiology recommended outpatient stress test. Advised to get mammogram as outpatient to rule out breast cyst Advised to quit smoking and follow-up with repeat CT as outpatient to evaluate lung nodule Patient reported having FNA C of left thyroid nodule previously which was benign Echo showed no wall motion abnormality. Cardiac enzymes are negative. I personally reviewed the record. Patient is interviewed and examined at bedside. Patient's care is coordinated with Siria Solano PA-C. Please refer to the documentation above for details of patient's presentation and for discussion of other issues. Subjective Pt was seen and examined in room 237-1. F/U chest pain. Continues to have R sided chest pain, non radiating, 4/10, made worse with touch, not made worse with movement or deep inspiration. She has never experienced before. Continues to c/o dull [place] that is resolved with administration of tramadol. Denies f/c/s, chest pain, sob, URI sx, n/v/d, change in bowel or urinary habits. Also denies visual change. Admitted yesterday for chest pain while working. 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 It was sharp, 8/10, nothing made better or worse and she has never experienced before. She was diaphoretic, N and SOB. She was concerned due to strong FH of Brother who had OH at age of 52, paternal GF who had OH in 50s and Father with CAD. In ED she was significantly hypertensive. Her trops and serial ecg were unremarkable. Review of Systems Review of Systems: All systems reviewed & are unremarkable except as noted in HPI & below Physical Exam Physical Exam: Gen: WD/WN, F, obese, NAD, A&O x3 HEENT: Normocephalic, atraumatic, conjunctivae moist, sclerae anicteric, mucous membranes moist. Lung: Clear to Auscultation bilaterally, no wheezes/rales/rhonchi Heart: Regular rate, regular rhythm, no murmurs, rubs, or gallops. + pain to palpation, pinpoint along medial aspect of L breast, no carine cystic structure noted. No pain with arm movements or deep breathing. Abdomen: Soft, NT, ND +BS x 4 Extremities: No edema Skin: Warm, no rash, negative turgor. Results & Data Results & Data ([facility]) Vital Signs (Past 12 Hours) Vital Signs Temp Pulse Pulse Resp BP Pulse Ox 04/30/21 08:00 76 04/30/21 07:36 36.8 C 58 L 20 143/86 H 95 04/30/21 04:52 144/86 H 04/30/21 03:00 36.7 C 62 20 167/88 H 94 04/30/21 02:02 128/60 04/29/21 23:21 36.7 C 63 18 147/83 H 93 Laboratory Results Short CBC 04/30/21 Range/Units 06:35 WBC 5.20 (4.8-10.8) K/uL Hgb 13.3 (12.0-16.0) g/dL Hct 41.1 (37-47) % Plt Count 211 (130-400) K/uL BMP 04/30/21 06:35 Sodium 140 Potassium 3.6 Chloride 107 Carbon Dioxide 29 BUN 11 Creatinine 0.61 Glucose 97 Calcium 8.6 Cardiac Enzymes 04/29/21 04/29/21 Range/Units 13:17 19:35 Troponin I < 0.015 < 0.015 (0-0.045) ng/ml Medications Administered Medication List Acetaminophen (Acetaminophen 325 Mg Tab) 650 mg PO Q4H PRN PRN Reason: Pain or Fever Stop: 05/29/21 11:26 Last Admin: 04/30/21 01:49 Dose: 650 mg Documented by: [id number] Admin: 04/29/21 21:37 Dose: 650 mg Documented by: [id number] Admin: 04/29/21 17:07 Dose: 650 mg Documented by: [id number] Admin: 04/29/21 13:08 Dose: 650 mg Documented by: [id number] Amlodipine Besylate (Amlodipine Besylate 5 Mg Tab) 5 mg PO QAM [facility] Stop: 05/30/21 08:59 Last Admin: 04/30/21 07:32 Dose: 5 mg Documented by: [id number] Aspirin (Aspirin 81 Mg Ectab) 81 mg PO DAILY [facility] Stop: 05/30/21 08:59 Last Admin: 04/30/21 07:31 Dose: 81 mg Documented by: [id number] Fish Oil ([place]-3 (Purified Fish Oil) 1 Gm Cap) 1 gm PO DAILY ISHMAEL Stop: 05/30/21 08:59 Last Admin: 04/30/21 07:32 Dose: 1 gm Documented by: [id number] Hydrochlorothiazide (Hydrochlorothiazide 25 Mg Tab) 25 mg PO DAILY [facility] Stop: 05/30/21 08:59 Last Admin: 04/30/21 07:32 Dose: 25 mg Documented by: [id number] Linaclotide (Linaclotide 145 Mcg Capsule) 145 mcg PO DAILY [facility] Stop: 05/30/21 08:59 Last Admin: 04/30/21 07:32 Dose: 145 mcg Documented by: [id number] Pantoprazole Sodium (Pantoprazole 40 Mg Tab) 40 mg PO DAILY ISHMAEL; Protocol Stop: 05/30/21 08:59 Last Admin: 04/30/21 07:32 Dose: 40 mg Documented by: [id number] Tramadol HCl (Tramadol Hcl 50 Mg Tablet) 25 - 50 mg PO Q4H PRN PRN Reason: Pain Stop: 05/30/21 01:55 Last Admin: 04/30/21 07:30 Dose: 25 mg Documented by: [id number] Discontinued Medications Amlodipine Besylate (Amlodipine Besylate 5 Mg Tab) Confirm Administered Dose 5 mg .ROUTE .STLiveOps-MED ONE Stop: 04/29/21 09:41 Last Admin: 04/29/21 09:42 Dose: 5 mg Documented by: [id number] Aspirin (Aspirin Chew 324 Mg) 324 mg PO NOW STA Stop: 04/29/21 07:09 Last Admin: 04/29/21 07:23 Dose: 324 mg Documented by: [id number] Ioversol (Optiray 320 125ml) 120 ml IV ONCE ONE Stop: 04/29/21 08:30 Last Admin: 04/29/21 08:29 Dose: 120 ml Documented by: [id number] Morphine Sulfate (Morphine Sulfate 2 Mg/Ml Carp) 2 mg IV NOW STA Stop: 04/29/21 08:56 Last Admin: 04/29/21 09:42 Dose: 2 mg Documented by: [id number] Nitroglycerin (Nitroglycerin Sl 0.4 Mg/Tab Tab) 0.4 mg SL UD PRN PRN Reason: Chest Pain Stop: 05/29/21 07:07 Last Admin: 04/29/21 08:05 Dose: 0.4 mg Documented by: [id number] Admin: 04/29/21 07:36 Dose: 0.4 mg Documented by: [id number] Admin: 04/29/21 07:23 Dose: 0.4 mg Documented by: [id number] Nitroglycerin (Nitroglycerin 2% Ointment 30gm Tube) 1 inch EXT NOW ONE Stop: 04/29/21 08:18 Last Admin: 04/29/21 08:57 Dose: 1 inch Documented by: [id number] Ondansetron HCl (Ondansetron Inj 2 Mg/Ml 2 Ml Vial) Confirm Administered Dose 4 mg .ROUTE .STK-MED ONE Stop: 04/29/21 08:00 Last Admin: 04/29/21 08:06 Dose: 4 mg Documented by: [id number] Ondansetron HCl (Ondansetron Inj 2 Mg/Ml 2 Ml Vial) 4 mg IV NOW STA Stop: 04/29/21 08:00 Last Admin: 04/29/21 08:06 Dose: Not Given Documented by: [id number] Ondansetron HCl (Ondansetron Inj 2 Mg/Ml 2 Ml Vial) 4 mg IV NOW STA Stop: 04/29/21 08:56 Last Admin: 04/29/21 09:55 Dose: 4 mg Documented by: [id number] Potassium Chloride (Potassium Chloride 10 Meq Tabcr) Confirm Administered Dose 40 meq PO .STK-MED ONE Stop: 04/29/21 09:41 Last Admin: 04/29/21 09:42 Dose: 40 meq Documented by: [id number] ECG Rate (beats per minute): 60 Rhythm: normal sinus (1) Chest pain Chest pain type: unspecified Qualified Code(s): R07.9 - Chest pain, unspecified
[2021-04-30] MEDS ORDERED: LOSARTAN POTASSIUM 25 MG TAB PO SCH (11:15)
--- NOTE | 2021-04-30 15:49 | Discharge Summary ---
Date of Service April 30, 2021 Admission HPI Per Admitting Provider 55 year old female with PMH HTN, osteoarthritis, and other problems listed below who presents to the ED for evaluation of chest pain. Patient reports that while at work this morning around 6AM, she developed a mid sternal chest pain that radiated over to her right shoulder. She described the pain as severe, sharp, and now has a pressure like sensation. She rates the pain #8/10 at it's worst. She had associated diaphoresis, nausea, shortness of breath, and lightheadedness. Patient reports she otherwise has been feeling well recently. No other recent illnesses, fever, or chills. Denies abdominal pain, vomiting, and diarrhea. No unintentional weight loss or weight gain. Denies urinary symptoms. In the ED, patient was found to be significantly hypertensive at 206/142. She was given SL nitro x 3 and 1 inch nitro paste. BP improved. Initial troponin is negative, EKG without acute ST changes. CTA chest negative for dissection. Admission Exam Per Admitting Provider WD/WN, vitals as above Eyes: PERRL, conjunctivae normal, anicteric sclerae ENMT: external ear and nose normal, oropharynx normal Respiratory: normal respiratory effort, lungs clear to auscultation Cardiovascular: Rate/Rhythm: regular rate and regular rhythm Vessels: normal peripheral pulses Extremities: + edema (+2 LLE, +1 RLE (chronic)) Gastrointestinal (Abdomen): normal bowel sounds, soft, nontender, no hepatosplenomegaly Musculoskeletal: no cyanosis or clubbing, extremities motor strength 5/5 Extremities: + chronic stasis changes Skin: no rashes, warm and dry Neurologic: PERRL, EOMI, accommodation nl, no face palsy, no dysarthria Psychiatric: A+Ox3, euthymic affect Principal Diagnosis Chest Pain HTN Urgency Hypokalemia Hypertriglyceridemia Discharge Data Allergies Allergy/AdvReac Type Severity Reaction Status Date / Time chlorhexidine Allergy Intermediate SEVERE Verified 04/29/21 08:14 ITCHING codeine Allergy Intermediate Hives Verified 04/29/21 08:14 Consultations Cardiology Consultation: (1) Hypertensive urgency: Blood pressure has improved with the measures detailed above. Continue home hydrochlorothiazide. Continue amlodipine at 5 mg/day which was added this admission. Add losartan 25 mg/day. Avoid rate lowering medications given resting bradycardia. Nonpharmacologic treatment of hypertension discussed. (2) Chest pain: Atypical. Reproducible with palpation of the chest wall. General measures advised. Patient with multiple cardiac risk factors including hypertension, dyslipidemia, chronic tobacco abuse, obesity, and family history. Recommend referral for Lexiscan nuclear stress testing once blood pressure is controlled. Risk factor and lifestyle modification discussed. Supervising Physician Co-Signing Physician Notes Patient seen and examined with Paco Strickland PA-C. Agree with findings and assessment as above. Chest pain is reproducible with no signs of active ischemia. Blood pressure improved with initiation of amlodipine, will start losartan as well. Will perform Lexiscan nuclear stress test as an outpatient. Okay to discharge to home from a cardiac standpoint. Will need follow-up BMP in 1 week given addition of losartan. Also recommend home blood pressure monitor. Ordered Studies Chest X-Ray 04/29/21 07:08 XR chest 1V portable CLINICAL HISTORY: Chest Pain COMPARISON STUDY: Chest radiograph January 29, 2021. FINDINGS: Lung volumes are normal. Lungs are clear. There is no pneumothorax or pleural effusion. Mild cardiomegaly is stable. Mediastinal contours are normal. There is no evidence for pulmonary edema. Postoperative findings within the spine are partially imaged. IMPRESSION: No acute cardiopulmonary findings. ACT 112: Negative or not required by law. Electronically signed by: Govind Garnica M.D. 04/29/2021 7:36 AM Chest CTA 04/29/21 07:59 CHEST CTA for AORTIC DISSECTION CT DOSE: 1708.68 mGy.cm HISTORY: Right-sided chest pain. TECHNIQUE: Multiaxial CT images of the chest were performed both before and after the intravenous administration of contrast to evaluate the aorta. Maximal intensity projection images were also obtained. A dose lowering technique was utilized adhering to the principles of ALARA. COMPARISON STUDY: None. FINDINGS: Noncontrast imaging through the chest shows no evidence for an intramural hematoma within the thoracic aorta. There is normal caliber thoracic aorta with no evidence for dissection. The heart is borderline enlarged. The central pulmonary arteries are patent. Partially visualized posterior fusion hardware within the cervicothoracic junction. No fractures within the visualized osseous structures. Limited views of the upper abdomen demonstrate normal liver, spleen, and adrenal glands. There is a 1.5 cm left thyroid nodule. No mediastinal or hilar lymphadenopathy. No pleural or pericardial effusions. Normal esophagus. No pneumothorax. The central airways are patent. A 4 mm subpleural nodule within the left upper lobe on image 80. A 3 mm subpleural nodule within the lingula on image 132. A 3 mm nodule within the left lower lobe on image 135. A 4 mm nodule within the right lower lobe on image 99. No focal lung consolidations to suggest pneumonia. IMPRESSION: 1. No evidence for an aortic dissection. 2. A few scattered subcentimeter indeterminate pulmonary nodules measuring up to 4 mm. Please refer to the chart below for recommended follow-up. 3. A 1.5 cm left thyroid nodule. Follow-up nonemergent thyroid ultrasound is recommended for further evaluation. Please refer to below summary of Fleischner criteria recommendations for follow- up of incidental CT nodules (Manan Person, Guidelines for management of small pulmonary nodules detected on CT scans: A statement from the Fleischner Society, Radiology 237: [phone].) SOLID NODULES Solitary nodule size: <6 mm * Low risk patients: no follow-up needed * high risk patients: optional CT at 12 months Solitary nodule size: 6-8 mm * Low risk patients: follow-up at 6-12 months, then consider further follow-up at 18-24 months * high risk patients: initial follow-up CT at 6-12 months and then at 18-24 months if no change Solitary nodule size: >8 mm * either low or high risk patients - consider follow-up CT at 3 months, and/or CT-PET, and/or biopsy Multiple nodules size: <6 mm * Low risk patients: no routine follow-up * high risk patients: optional CT at 12 months Multiple nodules size: 6-8 mm * Low risk patients: follow-up at 3-6 months, then consider further follow-up at 18-24 months * high risk patients: follow-up at 3-6 months, then at 18-24 months if no change Multiple nodules size: >8 mm * Low risk patients: follow-up at 3-6 months, then consider further follow-up at 18-24 months * high risk patients: follow-up at 3-6 months, then at 18-24 months if no change Note: newly detected indeterminate nodule in persons 35 years of age or older. * Low risk patients: minimal or absent history of smoking and/or other known risk factors * high risk patients: history of smoking or of other known risk factors (e.g. first degree relative with lung cancer, or exposure to asbestos, radon, uranium) * if a nodule up to 8 mm is partly solid or is ground glass further follow-up is required after 24 months to exclude possible slow growing adenocarcinoma (MONICA) SUBSOLID NODULES Solitary pure ground-glass nodule * nodule size <6 mm - no CT follow-up required * nodule size >=6 mm - follow-up CT at 6-12 months, then every 2 years until 5 years Solitary part-solid nodule * nodule size <6 mm - no CT follow-up required * nodule size >=6 mm - follow-up CT at 3-6 months. If unchanged, and solid component remains <6 mm, then annual follow-up for 5 years Multiple subsolid nodules * nodule size <6 mm - follow-up CT at 3-6 months, consider further follow-up at 2 and 4 years if stable * nodule size >=6 mm - follow-up CT at 3-6 months, subsequent management based on the most suspicious nodule(s) ACT 112: Negative or not required by law. Electronically signed by: Domingo Valentine M.D. 04/29/2021 8:[address] 04/30/21 01:56 CT OF THE HEAD WITHOUT CONTRAST CLINICAL HISTORY: Headache. COMPARISON STUDY: Head CT and CTA of the head January 29, 2021. CT DOSE: 537.48 mGy.cm TECHNIQUE: Helical axial images of the head were obtained without IV contrast. Automated exposure control was utilized for the study. A dose lowering technique was utilized adhering to the principles of ALARA. FINDINGS: No acute intracranial hemorrhage, midline shift or mass effect is present. The ventricular system is unremarkable. The basal cisterns are patent. No extra-axial collections are present. There are no findings to suggest acute dural sinus thrombosis or acute territorial infarct. No significant calvarial abnormalities are present. Visualized portions of the sinuses and mastoid air cells are clear. IMPRESSION: No acute intracranial findings. ACT 112: Negative or not required by law. Electronically signed by: Govind Garnica M.D. 04/30/2021 7:08 AM Hospital Course (1) Chest pain: (2) Hypertensive urgency: 55 yr old F who has significant PMH of HTN, borderline hypertriglyceridemia, tobacco abuse, +FH of CAD and obesity who presented to ED on 04/29 for chest pain and htn urgency. 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 Initial blood pressure in the ED was 240/120. She was admitted and underwent cardiac work-up. She was started on amlodipine in addition to her hydrochlorothiazide. Her blood pressure did improve. Her troponins were cycled x3 and negative. Her EKGs were repeated and unchanged. Echocardiogram was performed which revealed a preserved EF, moderate LVH and grade 1 diastolic dysfunction. Her symptoms next day were improved but persistent and are reproducible and felt likely to be nonischemic in nature. She does have multiple risk factors and comorbidities for CAD including obesity, HTN, tobacco abuse and strong family history. Therefore cardiology was consulted and recommends a Lexiscan stress test as outpatient. They also added losartan to her medication regimen. She was started on both of these medicat ions prior to discharge and tolerated well. At discharge her blood pressure was 130/85 and she was discharged in stable condition without chest pain. She was encouraged to use warm heat 3-4 times a day to her right chest wall as well as APAP and 2 to 400 mg of ibuprofen 3 times a day for pain. Smoking cessation and weight loss were encouraged. She was further encouraged to monitor her blood pr essure at least twice daily keeping a log of her blood pressure to follow-up with her PCP. She will follow up a BMP in 1 week due to initiation of losartan. Incidentally on work-up CAT scan revealed a 1.5 cm left thyroid nodule as well as few scattered subcentimeter pulmonary nodules measuring up to 4 mm. She admits to having knowledge of thyroid and pulmonary nodules in the past but admits this has been several years. It is recommended she have repeat CT scan of the chest in 1 year any nonemergent thyroid ultrasound as outpatient. Further recommendations are outpatient sleep study to r/o PRESTON as component of HTN. (3) Lung nodules: (4) Thyroid nodule: (5) DVT prophylaxis: Total Time Total Time Spent Total Time Spent (In Minutes): 60 minutes Discharge Plan Discharge Items Patient Disposition: Home - Self-Care Reason For Visit: CHEST PAIN, HTN URGENCY Discharge Diagnosis: Chest pain - likely musculoskeletal and related to elevated blood pressure High Blood Pressure Low Potassium Borderline High Triglycerides Condition on Discharge: Good Activity: As commented below Activity Comment: avoid strenous activity until seen by PCP Lifting: Wait until after follow-up appointment Bathing: No limitations Exercise/Sports: Wait until after follow-up appointment Driving/Machine Use: No limitations Non-emergency contact: Primary Care Provider Call non-emergency contact if: you have any medication questions, your symptoms worsen, your pain is not controlled, your pain is worsening, your pain is unusual for you and you have a fever Follow-up/Referrals: Giuseppe Andre MD [Primary Care Provider] - 05/07/21 11:00 am (Date & Time 05/07/2021 11:00 AM Provider Giuseppe Andre MD Department [facility] ) Diet: Regular Addtl Attending Provider Instructions: MEDICATION CHANGES: You were started on 2 new blood pressure medications: *Amlodipine 5mg by mouth daily *Losartan 25mg by mouth daily These are to be taken along with your Hydrochlorothiazide. SUMMARY OF HOSPITAL STAY: You were admitted to hospital due to chest pain and high blood pressure. It was determined you did not suffer a heart attack. You had lab work, EKG and an Ultrasound of your heart which proves this was not related to your heart. A CAT Scan of your chest was also done to rule out blood clot, aneurysm or dissection that could be life threatening. It is felt your chest pain is likely muscular related since it it reproducible or possible related to a cyst in your breast. You were seen by cardiology. PENDING TEST RESULTS: None RECOMMENDATIONS FOR FOLLOW-UP: It is recommend you use a warm compress to your right chest wall 3-4 x a day for 20 minutes You can use ibuprofen 200mg tablets every 6 hours as needed for pain. You can also alternate this with Tylenol. If your symptoms do not improve I recommend you discuss this with your PCP for further testing. Your blood pressure was found to be significantly elevated and you were started on 2 new medications. I recommend you have an outpatient sleep study to rule out Sleep Apnea. Monitor your blood pressure twice daily and keep a log of this. Take this log with you to your next PCP appointment. I recommend you have repeat blood work in 1 week at PCP office to check kidney function and potassium due to starting new medications. You have a follow up with PCP on 05/07/2021 @ 11:00 a.m. Lastly you were found to have an incidental nodule on your thyroid and well as few nodules in your lungs. It is recommended you have repeat chest CT as outpatient in 1 year. Recommend non emergent thyroid ultrasound as outpatient. Recommend undergoing surveillance cancer screenings. Specifically Mammogram as you state you have never had one. OTHER INSTRUCTIONS: Seek medical attention if you have: * temperature above 101 * chest pain or trouble breathing * abdominal pain, nausea, vomiting * diarrhea, dark stools or bloody stools * any unanswered questions or concerns Call 911 if symptoms are severe. Please take good care of yourself. It has been a pleasure taking care of you. Please take care of yourself. If you have any questions regarding your recent hospitalization please contact [facility] and request [facility] @ [phone]. Siria Solano PA-C Pending Studies at Discharge: No Stand-Alone Forms: My [facility], Work/School Release, Smoking Cessation Medications and DC Order Prescriptions: New amlodipine [Norvasc] 5 mg Tablet 5 mg PO QAM Qty: 30 RF: 0 losartan 25 mg Tablet 25 mg PO QAM Qty: 30 RF: 0 Continued multivitamin Tablet 1 tab PO DAILY@0200 Qty: 0 RF: 0 omega-3 fatty acids [Fish Oil Concentrate] 1,000 mg Capsule 1,000 mg PO DAILY@0200 RF: 0 aspirin 81 mg Tablet,Delayed Release (Dr/Ec) 81 mg PO DAILY@0200 RF: 0 hydrochlorothiazide 25 mg tablet 25 mg PO DAILY@0200 RF: 0 potassium gluconate 595 mg (99 mg) Tablet 99 mg PO DAILY@0200 RF: 0 omeprazole 20 mg Capsule,Delayed Release(Dr/Ec) 20 mg PO DAILY@0200 RF: 0 Linzess 145 mcg capsule 145 mcg PO DAILY@0200 RF: 0 Discharge Orders: Discharge Order (Routine); Ordered 04/30/21 Ordered By: Siria Campa/Other Patient Handouts: Controlling High Blood Pressure, DASH Plan Eat Heart Healthy Food, Hypertension Dc Admission Data Admit Date/Time: 04/29/21 08:47 Attending Provider: Wicho Schofield Admit Provider: Kelsey Carey Primary Care Provider: Giuseppe Andre Other Providers: Kelsey Carey ; Siria Laguna ; Wes Fair Other Interventions: Discharge Summary Assessment (RN) Last Done: 04/30/21 16:24 Supervising Physician Co-Signing Physician Notes Patient is seen and examined at bedside. States having right-sided chest pain which is reproducible, improved from yesterday. Nausea, vomiting, diaphoresis, dyspnea resolved. Offers no other complaints. On exam patient is morbidly obese, no apparent distress, normocephalic atraumatic, EOMI, normal bowel sounds, clear to auscultation, S1-S2, no murmur, left greater than right lower extremity edema, + chest tenderness on palpation on the right side, abdomen soft, nontender, normal bowel sounds, alert, awake, oriented, grossly no focal deficits. Patient is admitted for chest pain rule out ACS Chest pain likely musculoskeletal in origin Hypertension contributing as well Blood pressure medications adjusted. Added losartan. Continue amlodipine, HCTZ Cardiology recommended outpatient stress test. Advised to get mammogram as outpatient to rule out breast cyst Advised to quit smoking and follow-up with repeat CT as outpatient to evaluate lung nodule Patient reported having FNA C of left thyroid nodule previously which was benign Echo showed no wall motion abnormality. Cardiac enzymes are negative. I personally reviewed the record. Patient is interviewed and examined at bedside. Patient's care is coordinated with Siria Solano PA-C. Please refer to the documentation above for details of patient's presentation and for discussion of other issues.
--- NOTE | 2021-04-30 16:27 | Electrocardiogram Report ---
Test Reason : Blood Pressure : / mmHG Vent. Rate : 060 BPM Atrial Rate : 060 BPM P-R Int : 164 ms QRS Dur : 090 ms QT Int : 470 ms P-R-T Axes : 050 006 023 degrees QTc Int : 470 ms Normal sinus rhythm Normal ECG When compared with ECG of 29-APR-2021 08:03, No significant change was found Confirmed by Jas Barnes ([id number]) on 04/30/2021 4:27:43 PM Referred By: REFERRED SELF Confirmed By:Jas Barnes
== END 2021-04-30 17:29 | disposition home or self-care (01) ==
LOC: ED 06:36 → EDINP 06:36 → SUATTDRO 08:47 → 2S 10:40